=== PATIENT | female | born 1935 | race Caucasian/White ===

== ENCOUNTER → 2017-01-27 | Outpatient (CLI) | payer MEDICARE | END | disposition home or self-care (01) | LOC: WOUND 13:52 | PROVIDERS: ATTEND Podiatrist Foot & Ankle Surgery | DX: E11.621 Type 2 diabetes mellitus with foot ulcer (principal); L97.411 Non-pressure chronic ulcer of right heel and midfoot limited to breakdown of skin; I10 Essential (primary) hypertension; M19.90 Unspecified osteoarthritis, unspecified site | CPT/HCPCS: 97597; G0463; WOU0463 ==

== ENCOUNTER → 2017-02-10 | Outpatient (CLI) | payer MEDICARE | END | disposition home or self-care (01) | LOC: WOUND 14:30 | PROVIDERS: ATTEND Podiatrist Foot & Ankle Surgery | DX: E11.621 Type 2 diabetes mellitus with foot ulcer (principal); L97.411 Non-pressure chronic ulcer of right heel and midfoot limited to breakdown of skin; I10 Essential (primary) hypertension; M19.90 Unspecified osteoarthritis, unspecified site; Z96.649 Presence of unspecified artificial hip joint | CPT/HCPCS: G0463; WOU0463 ==

== ENCOUNTER 2019-03-01 13:54 | Inpatient (IN) | payer MEDICARE ==
[~2019-03-01] VITALS: Ht 157.5 cm; Wt 73.2 kg
[~2019-03-01 13:54] MED LIST: AMLO10TA8 PO; CARV-39 PO; GABA300C10 PO; HYDR25TA6 PO; INSU100I28 SQ; LIDO700A20 TD; LISI5TAB7 PO; METF500T17 PO; NYST15CR2 TP
[2019-03-01] MEDS ORDERED: SODIUM CHLORIDE 0.9% 1,000 ML IV ONE (13:59)
[2019-03-01] MEDS ORDERED: SODIUM CHLORIDE 0.9% 1,000ML IVBOLUS ONE ×2 (14:30→17:00)
[2019-03-01] MEDS ORDERED: ACETAMINOPHEN 500 MG TABLET PO ONE (14:30)
[2019-03-01] MEDS ORDERED: CEFTRIAXONE PMX 1GM/50ML 50 ML IV ONE (14:30)
[2019-03-01 14:35] LABS: MEAN CORPUSCULAR HEMOGLOBIN 29.6 pg (27.0-34.8); MEAN CORPUSCULAR HGB CONC 32.7 g/dL (32.4-35.8); MEAN CORPUSCULAR VOLUME 90.6 fL (80-100); MEAN PLATELET VOLUME 8.1 fL (7.4-10.4); PLATELET COUNT 203 x10^3/uL (130-400); RED BLOOD COUNT 4.42 x10^6/uL (3.82-5.3)
[2019-03-01 14:46] LABS: ALANINE AMINOTRANSFERASE 18 U/L (12-78); ALBUMIN 3.7 g/dL (3.4-5.0); ANION GAP 10 mmol/L (5-15); CALCIUM 9.3 mg/dL (8.5-10.1); CHLORIDE 101 mmol/L (98-107); CREATININE 0.86 mg/dL (0.55-1.02)
[2019-03-01 14:49] LABS: ALKALINE PHOSPHATASE 88 U/L (45-117); BILIRUBIN,TOTAL 0.8 mg/dL (0.2-1.0); TOTAL PROTEIN 7.6 g/dL (6.4-8.2)
[2019-03-01] MEDS ORDERED: CEFTRIAXONE PMX 1GM/50ML 50 ML ONE (14:49)
[2019-03-01] MEDS ORDERED: ACETAMINOPHEN 500 MG TABLET ONE (14:49)
[2019-03-01 15:06] LABS: MD YES
[2019-03-01 15:07] LABS: MICROSCOPIC INDICATED
[2019-03-01 15:08] LABS: BAND#(MANUAL) 1.95 x10^3/uL; BANDS%(MANUAL) 13 % (0-7); BASOS#(MANUAL) 0.15 x10^3/uL (0-0.1); BASOS% (MANUAL) 1 % (0-1); EOS% (MANUAL) 2 % (1-7); LYMPH#(MANUAL) 0.15 x10^3/uL (1-3.4); LYMPHS% (MANUAL) 1 % (22-44); MONOS#(MANUAL) 0.15 x10^3/uL (0.3-2.7); MONOS% (MANUAL) 1 % (2-9); SEGS% (MANUAL) 82 % (42-75)
[2019-03-01 15:11] LABS: <PLATELET ESTIMATE> ADEQUATE; <PLT MORPHOLOGY> NORMAL PLT MORPH; ANISOCYTOSIS 1+
[2019-03-01] MEDS ORDERED: AZITHROMYCIN 500 MG in SODIUM CHLORIDE 0.9% 250 ML IV ONE (15:30)
[2019-03-01 15:31] LABS: CULTURE INDICATED? YES
[2019-03-01] MEDS: SODIUM CHLORIDE 0.9% 1,000 ML IV SCH (16:25)
[2019-03-01] MEDS ORDERED: hydrALAzine 20 MG/ML, 1ML IVPush PRN (16:30)
[2019-03-01] MEDS ORDERED: HYDROcodone/APAP 5/325 TABLET PO PRN (16:30)
[2019-03-01] MEDS ORDERED: morphine SULFATE 10 MG/ML, 1ML IVPush PRN (16:30)
[2019-03-01] MEDS: ENOXAPARIN 40 MG/0.4 ML SQ SCH (16:30)
[2019-03-01] MEDS ORDERED: ONDANSETRON 2MG/ML, 2ML IVPush PRN (16:30)
[2019-03-01 17:10] VITALS: BP 131/76
[2019-03-01 18:56] LABS: HEMOGLOBIN A1C 7.4 % (4.2-6.3)
[2019-03-01 19:24] VITALS: BP 138/81
[2019-03-01] MEDS: DOXYCYCLINE 100MG CAP PO SCH (21:28)
[2019-03-01] MEDS: CARVEDILOL 25 MG TABLET PO SCH (21:29)
[2019-03-01] MEDS: INSULIN LISPRO 100 UNITS/ML, PEN SQ-INSULIN SCH (21:29)
[2019-03-01] MEDS: GABAPENTIN 100 MG CAPSULE PO SCH (21:29)
[2019-03-01] MEDS: INSULIN GLARGINE 100 UNITS/ML, PEN SQ-INSULIN SCH (21:29)
[2019-03-02] MEDS: KETOROLAC 30 MG/1 ML IVPush SCH ×3 (01:12→13:21)
[2019-03-02 01:51] VITALS: BP 116/74
[2019-03-02] MEDS: SODIUM CHLORIDE 0.9% 1,000 ML IV SCH ×3 (03:15→20:37)
[2019-03-02 05:19] LABS: MEAN CORPUSCULAR HEMOGLOBIN 30.1 pg (27.0-34.8); MEAN CORPUSCULAR HGB CONC 32.9 g/dL (32.4-35.8); MEAN CORPUSCULAR VOLUME 91.6 fL (80-100); MEAN PLATELET VOLUME 8.4 fL (7.4-10.4); PLATELET COUNT 148 x10^3/uL (130-400); RED BLOOD COUNT 3.51 x10^6/uL (3.82-5.3); RED CELL DISTRIBUTION WIDTH 15.2 % (9.6-15.2)
[2019-03-02 05:36] LABS: ALANINE AMINOTRANSFERASE 27 U/L (12-78); ALBUMIN 2.5 g/dL (3.4-5.0); ANION GAP 8 mmol/L (5-15); CALCIUM 7.8 mg/dL (8.5-10.1); CHLORIDE 107 mmol/L (98-107); CREATININE 0.75 mg/dL (0.55-1.02)
[2019-03-02 05:38] LABS: ALKALINE PHOSPHATASE 63 U/L (45-117); BILIRUBIN,TOTAL 0.5 mg/dL (0.2-1.0); TOTAL PROTEIN 5.6 g/dL (6.4-8.2)
[2019-03-02 05:57] LABS: BASOPHILS % (AUTO) 0 % (0-1); EOSINOPHILS # (AUTO) 0.01 x10^3/uL (0-0.4); EOSINOPHILS % (AUTO) 0 % (1-7); LYMPHOCYTES # (AUTO) 0.57 x10^3/uL (1-3.4); LYMPHOCYTES % (AUTO) 7 % (22-44); MD SCAN; MONOCYTES # (AUTO) 0.25 x10^3/uL (0.2-0.8); MONOCYTES % (AUTO) 3 % (2-9); NEUTROPHILS % (AUTO) 89 % (42-75)
[2019-03-02] MEDS: INSULIN LISPRO 100 UNITS/ML, PEN SQ-INSULIN SCH ×4 (07:00→20:39)
[2019-03-02 07:25] VITALS: BP 130/67
[2019-03-02] MEDS: LISINOPRIL 5 MG TABLET PO SCH (07:55)
[2019-03-02] MEDS: CARVEDILOL 25 MG TABLET PO SCH ×2 (07:56→20:38)
[2019-03-02] MEDS: DOXYCYCLINE 100MG CAP PO SCH ×2 (07:56→20:38)
[2019-03-02] MEDS: GABAPENTIN 100 MG CAPSULE PO SCH ×2 (07:56→20:38)
[2019-03-02] MEDS: AMLODIPINE 10 MG TAB PO SCH (07:56)
[2019-03-02] MEDS: INSULIN GLARGINE 100 UNITS/ML, PEN SQ-INSULIN SCH ×2 (09:36→20:40)
[2019-03-02 13:50] VITALS: BP 101/58
[2019-03-02] MEDS: CEFTRIAXONE PMX 2GM/50ML 50 ML IV SCH (15:06)
[2019-03-02] MEDS: ENOXAPARIN 40 MG/0.4 ML SQ SCH (16:56)
[2019-03-02 19:42] VITALS: BP 129/76
[2019-03-02] MEDS: KETOROLAC 30 MG/1 ML IVPush PRN (22:38)
[2019-03-03 00:42] VITALS: BP 134/79
[2019-03-03] MEDS: SODIUM CHLORIDE 0.9% 1,000 ML IV SCH (04:32)
[2019-03-03] MEDS: KETOROLAC 30 MG/1 ML IVPush PRN (05:30)
[2019-03-03 06:22] LABS: ANION GAP 7 mmol/L (5-15); CALCIUM 7.7 mg/dL (8.5-10.1); CHLORIDE 109 mmol/L (98-107)
[2019-03-03 06:23] LABS: CREATININE 0.56 mg/dL (0.55-1.02); MEAN CORPUSCULAR HEMOGLOBIN 32.8 pg (27.0-34.8); MEAN CORPUSCULAR HGB CONC 35.5 g/dL (32.4-35.8); MEAN CORPUSCULAR VOLUME 92.5 fL (80-100); RED BLOOD COUNT 3.16 x10^6/uL (3.82-5.3); RED CELL DISTRIBUTION WIDTH 15.2 % (9.6-15.2)
[2019-03-03 06:40] LABS: BASOPHILS # (AUTO) 0.01 x10^3/uL (0-0.1); BASOPHILS % (AUTO) 0 % (0-1); EOSINOPHILS # (AUTO) 0.13 x10^3/uL (0-0.4); EOSINOPHILS % (AUTO) 2 % (1-7); LYMPHOCYTES # (AUTO) 0.98 x10^3/uL (1-3.4); LYMPHOCYTES % (AUTO) 12 % (22-44); MD SCAN; MEAN PLATELET VOLUME 8.1 fL (7.4-10.4); MONOCYTES % (AUTO) 5 % (2-9); NEUTROPHILS # (AUTO) 6.86 x10^3/uL (1.8-6.8); NEUTROPHILS % (AUTO) 82 % (42-75); PLATELET COUNT 106 x10^3/uL (130-400)
[2019-03-03] MEDS: INSULIN LISPRO 100 UNITS/ML, PEN SQ-INSULIN SCH ×4 (07:00→21:00)
[2019-03-03 07:10] VITALS: BP 148/76
[2019-03-03] MEDS: DOXYCYCLINE 100MG CAP PO SCH ×2 (08:41→21:35)
[2019-03-03] MEDS: AMLODIPINE 10 MG TAB PO SCH (08:41)
[2019-03-03] MEDS: LISINOPRIL 5 MG TABLET PO SCH (08:42)
[2019-03-03] MEDS: GABAPENTIN 100 MG CAPSULE PO SCH ×2 (08:42→21:35)
[2019-03-03] MEDS: CARVEDILOL 25 MG TABLET PO SCH ×2 (08:42→21:35)
[2019-03-03] MEDS: INSULIN GLARGINE 100 UNITS/ML, PEN SQ-INSULIN SCH ×2 (08:57→21:00)
[2019-03-03 14:00] VITALS: BP 148/71
[2019-03-03] MEDS: CEFTRIAXONE PMX 2GM/50ML 50 ML IV SCH (16:19)
[2019-03-03] MEDS: ENOXAPARIN 40 MG/0.4 ML SQ SCH (16:19)
[2019-03-03] MEDS: ACETAMINOPHEN 325 MG TABLET PO PRN (17:41)
[2019-03-03 19:20] VITALS: BP 169/83
[2019-03-03 21:30] VITALS: BP 158/81
[2019-03-04 02:08] VITALS: BP 141/81
[2019-03-04 04:43] LABS: BASOPHILS # (AUTO) 0.02 x10^3/uL (0-0.1); BASOPHILS % (AUTO) 0 % (0-1); EOSINOPHILS # (AUTO) 0.08 x10^3/uL (0-0.4); EOSINOPHILS % (AUTO) 1 % (1-7); LYMPHOCYTES # (AUTO) 1.54 x10^3/uL (1-3.4); LYMPHOCYTES % (AUTO) 27 % (22-44); MD NO; MEAN CORPUSCULAR HGB CONC 32.7 g/dL (32.4-35.8); MEAN CORPUSCULAR VOLUME 91.7 fL (80-100); MEAN PLATELET VOLUME 8.8 fL (7.4-10.4); MONOCYTES # (AUTO) 0.49 x10^3/uL (0.2-0.8); MONOCYTES % (AUTO) 9 % (2-9); NEUTROPHILS # (AUTO) 3.67 x10^3/uL (1.8-6.8); NEUTROPHILS % (AUTO) 63 % (42-75); PLATELET COUNT 113 x10^3/uL (130-400); RED BLOOD COUNT 3.35 x10^6/uL (3.82-5.3)
[2019-03-04 04:47] LABS: ANION GAP 8 mmol/L (5-15); CALCIUM 8.5 mg/dL (8.5-10.1); CHLORIDE 106 mmol/L (98-107); CREATININE 0.51 mg/dL (0.55-1.02)
[2019-03-04] MEDS: INSULIN LISPRO 100 UNITS/ML, PEN SQ-INSULIN SCH ×4 (07:00→22:04)
[2019-03-04 07:51] VITALS: BP 180/84
[2019-03-04] MEDS: AMLODIPINE 10 MG TAB PO SCH (08:30)
[2019-03-04] MEDS: LISINOPRIL 5 MG TABLET PO SCH (08:30)
[2019-03-04] MEDS: DOXYCYCLINE 100MG CAP PO SCH ×2 (08:30→22:02)
[2019-03-04] MEDS: GABAPENTIN 100 MG CAPSULE PO SCH ×2 (08:30→22:03)
[2019-03-04] MEDS: ACETAMINOPHEN 325 MG TABLET PO PRN (08:31)
[2019-03-04] MEDS: CARVEDILOL 25 MG TABLET PO SCH ×2 (08:31→22:03)
[2019-03-04] MEDS: INSULIN GLARGINE 100 UNITS/ML, PEN SQ-INSULIN SCH ×2 (08:32→22:04)
[2019-03-04 09:24] VITALS: BP 165/85
[2019-03-04 14:26] VITALS: BP 150/77
[2019-03-04] MEDS: CYCLOBENZAPRINE 10 MG TABLET PO SCH ×2 (15:01→22:03)
[2019-03-04] MEDS: CEFTRIAXONE PMX 2GM/50ML 50 ML IV SCH (15:01)
[2019-03-04] MEDS: ENOXAPARIN 40 MG/0.4 ML SQ SCH (16:30)
[2019-03-04 19:16] VITALS: BP 142/73
[2019-03-04 22:00] VITALS: BP 158/74
[2019-03-05 03:05] VITALS: BP 151/61
[2019-03-05 05:33] LABS: BASOPHILS # (AUTO) 0.03 x10^3/uL (0-0.1); BASOPHILS % (AUTO) 1 % (0-1); EOSINOPHILS # (AUTO) 0.12 x10^3/uL (0-0.4); EOSINOPHILS % (AUTO) 2 % (1-7); LYMPHOCYTES # (AUTO) 1.26 x10^3/uL (1-3.4); LYMPHOCYTES % (AUTO) 24 % (22-44); MD NO; MEAN CORPUSCULAR HEMOGLOBIN 31.1 pg (27.0-34.8); MEAN CORPUSCULAR HGB CONC 33.5 g/dL (32.4-35.8); MEAN CORPUSCULAR VOLUME 92.8 fL (80-100); MEAN PLATELET VOLUME 8.8 fL (7.4-10.4); MONOCYTES # (AUTO) 0.63 x10^3/uL (0.2-0.8); MONOCYTES % (AUTO) 12 % (2-9); NEUTROPHILS # (AUTO) 3.28 x10^3/uL (1.8-6.8); NEUTROPHILS % (AUTO) 62 % (42-75); PLATELET COUNT 164 x10^3/uL (130-400); RED BLOOD COUNT 3.41 x10^6/uL (3.82-5.3); RED CELL DISTRIBUTION WIDTH 14.8 % (9.6-15.2)
[2019-03-05 05:42] LABS: ANION GAP 6 mmol/L (5-15); CALCIUM 8.8 mg/dL (8.5-10.1); CHLORIDE 111 mmol/L (98-107); CREATININE 0.41 mg/dL (0.55-1.02)
[2019-03-05 06:48] VITALS: BP 181/92
[2019-03-05] MEDS: INSULIN LISPRO 100 UNITS/ML, PEN SQ-INSULIN SCH ×4 (07:30→21:37)
[2019-03-05] MEDS: CARVEDILOL 25 MG TABLET PO SCH ×2 (08:36→21:36)
[2019-03-05] MEDS: INSULIN GLARGINE 100 UNITS/ML, PEN SQ-INSULIN SCH ×2 (08:36→21:38)
[2019-03-05] MEDS: GABAPENTIN 100 MG CAPSULE PO SCH ×2 (08:36→21:37)
[2019-03-05] MEDS: AMLODIPINE 10 MG TAB PO SCH (08:36)
[2019-03-05] MEDS: LISINOPRIL 5 MG TABLET PO SCH (08:37)
[2019-03-05] MEDS: CYCLOBENZAPRINE 10 MG TABLET PO SCH ×3 (08:37→21:36)
[2019-03-05] MEDS: DOXYCYCLINE 100MG CAP PO SCH ×2 (08:37→21:36)
[2019-03-05] MEDS ORDERED: POTASSIUM CHLORIDE 20 MEQ TAB.ER.PRT PO ONE (09:30)
[2019-03-05 12:17] VITALS: BP 119/77
[2019-03-05 13:23] VITALS: BP 163/73
[2019-03-05] MEDS: CEFTRIAXONE PMX 2GM/50ML 50 ML IV SCH (15:01)
[2019-03-05] MEDS: FUROSEMIDE 20 MG/2 ML IV SCH ×2 (17:00→17:07)
[2019-03-05] MEDS: ENOXAPARIN 40 MG/0.4 ML SQ SCH (17:07)
[2019-03-05 19:08] VITALS: BP 154/76
[2019-03-06 01:16] VITALS: BP 149/89
[2019-03-06 04:34] LABS: BASOPHILS # (AUTO) 0.02 x10^3/uL (0-0.1); BASOPHILS % (AUTO) 0 % (0-1); EOSINOPHILS # (AUTO) 0.15 x10^3/uL (0-0.4); EOSINOPHILS % (AUTO) 3 % (1-7); LYMPHOCYTES # (AUTO) 1.98 x10^3/uL (1-3.4); LYMPHOCYTES % (AUTO) 36 % (22-44); MD NO; MEAN CORPUSCULAR HEMOGLOBIN 29.7 pg (27.0-34.8); MEAN CORPUSCULAR HGB CONC 32.8 g/dL (32.4-35.8); MEAN CORPUSCULAR VOLUME 90.4 fL (80-100); MEAN PLATELET VOLUME 8.3 fL (7.4-10.4); MONOCYTES # (AUTO) 0.58 x10^3/uL (0.2-0.8); MONOCYTES % (AUTO) 11 % (2-9); NEUTROPHILS % (AUTO) 51 % (42-75); PLATELET COUNT 192 x10^3/uL (130-400); RED BLOOD COUNT 3.79 x10^6/uL (3.82-5.3); RED CELL DISTRIBUTION WIDTH 14.6 % (9.6-15.2)
[2019-03-06 04:36] LABS: ANION GAP 8 mmol/L (5-15); CALCIUM 9.3 mg/dL (8.5-10.1); CHLORIDE 105 mmol/L (98-107); CREATININE 0.54 mg/dL (0.55-1.02)
[2019-03-06] MEDS: INSULIN LISPRO 100 UNITS/ML, PEN SQ-INSULIN SCH ×4 (07:00→21:10)
[2019-03-06 07:16] VITALS: BP 195/80
[2019-03-06] MEDS: INSULIN GLARGINE 100 UNITS/ML, PEN SQ-INSULIN SCH ×2 (08:22→21:09)
[2019-03-06] MEDS: FUROSEMIDE 20 MG/2 ML IV SCH (08:22)
[2019-03-06] MEDS: LISINOPRIL 5 MG TABLET PO SCH (08:22)
[2019-03-06] MEDS: CYCLOBENZAPRINE 10 MG TABLET PO SCH ×3 (08:22→21:07)
[2019-03-06] MEDS: CARVEDILOL 25 MG TABLET PO SCH ×2 (08:22→21:08)
[2019-03-06] MEDS: DOXYCYCLINE 100MG CAP PO SCH ×2 (08:22→21:07)
[2019-03-06] MEDS: AMLODIPINE 10 MG TAB PO SCH (08:23)
[2019-03-06] MEDS: GABAPENTIN 100 MG CAPSULE PO SCH ×2 (08:23→21:07)
[2019-03-06 12:42] VITALS: BP 145/77
[2019-03-06] MEDS: CEFTRIAXONE PMX 2GM/50ML 50 ML IV SCH (15:02)
[2019-03-06] MEDS: ENOXAPARIN 40 MG/0.4 ML SQ SCH (15:38)
[2019-03-06] MEDS: FUROSEMIDE 20 MG TABLET PO SCH (16:37)
[2019-03-06 18:55] VITALS: BP 172/88
[2019-03-06] MEDS: ACETAMINOPHEN 325 MG TABLET PO PRN (22:33)
[2019-03-07 02:58] VITALS: BP 172/85
[2019-03-07 07:47] VITALS: BP 179/73
[2019-03-07] MEDS: INSULIN GLARGINE 100 UNITS/ML, PEN SQ-INSULIN SCH ×2 (09:05→20:49)
[2019-03-07] MEDS: INSULIN LISPRO 100 UNITS/ML, PEN SQ-INSULIN SCH ×4 (09:06→20:49)
[2019-03-07] MEDS: DOXYCYCLINE 100MG CAP PO SCH ×2 (09:07→20:41)
[2019-03-07] MEDS: FUROSEMIDE 20 MG TABLET PO SCH ×2 (09:07→16:37)
[2019-03-07] MEDS: CARVEDILOL 25 MG TABLET PO SCH ×2 (09:08→20:41)
[2019-03-07] MEDS: CYCLOBENZAPRINE 10 MG TABLET PO SCH ×3 (09:08→20:41)
[2019-03-07] MEDS: LISINOPRIL 5 MG TABLET PO SCH (09:08)
[2019-03-07] MEDS: GABAPENTIN 100 MG CAPSULE PO SCH ×2 (09:08→20:41)
[2019-03-07] MEDS: AMLODIPINE 10 MG TAB PO SCH (09:13)
[2019-03-07] MEDS: CEFDINIR 300 MG CAPSULE PO SCH (14:17)
[2019-03-07 14:50] VITALS: BP 179/72
[2019-03-07] MEDS: ENOXAPARIN 40 MG/0.4 ML SQ SCH (16:37)
[2019-03-07 19:59] VITALS: BP 179/76
[2019-03-07] MEDS: LISINOPRIL 10 MG TABLET PO SCH (20:41)
[2019-03-08 03:33] VITALS: BP 129/75
[2019-03-08] MEDS: CEFDINIR 300 MG CAPSULE PO SCH (05:31)
[2019-03-08] MEDS: INSULIN LISPRO 100 UNITS/ML, PEN SQ-INSULIN SCH ×3 (07:00→17:06)
[2019-03-08 07:15] VITALS: BP 175/80
[2019-03-08] MEDS: DOXYCYCLINE 100MG CAP PO SCH (07:52)
[2019-03-08] MEDS: FUROSEMIDE 20 MG TABLET PO SCH ×2 (07:53→16:28)
[2019-03-08] MEDS: CARVEDILOL 25 MG TABLET PO SCH (07:53)
[2019-03-08] MEDS: AMLODIPINE 10 MG TAB PO SCH (07:55)
[2019-03-08] MEDS: LISINOPRIL 10 MG TABLET PO SCH (07:55)
[2019-03-08] MEDS: CYCLOBENZAPRINE 10 MG TABLET PO SCH ×2 (08:02→16:43)
[2019-03-08] MEDS: INSULIN GLARGINE 100 UNITS/ML, PEN SQ-INSULIN SCH (08:04)
[2019-03-08] MEDS: GABAPENTIN 100 MG CAPSULE PO SCH (08:05)
[2019-03-08] MEDS ORDERED: AMLODIPINE 10 MG TAB PO SCH (09:00)
[2019-03-08] MEDS ORDERED: HYDR20VI3 IVPush (10:46)
[2019-03-08] MEDS ORDERED: INSU100I11 SQ-INSULIN (10:46)
[2019-03-08] MEDS ORDERED: LISI-167 PO (10:46)
[2019-03-08] MEDS ORDERED: INSU100I13 SQ-INSULIN (10:46)
[2019-03-08] MEDS ORDERED: FURO20TA3 PO (10:46)
[2019-03-08] MEDS ORDERED: AMLO10TA8 PO (10:46)
[2019-03-08] MEDS ORDERED: CEFD300C37 PO (10:46)
[2019-03-08] MEDS ORDERED: ENOX40SY4 SQ (10:46)
[2019-03-08 12:44] VITALS: BP 146/68
[2019-03-08] MEDS: ENOXAPARIN 40 MG/0.4 ML SQ SCH (16:40)
== END 2019-03-08 17:09 | DRG 871 ==
LOC: ED 16:10 → EDIP 16:15 → 3NE 16:35
PROVIDERS: ADMIT Internal Medicine; ATTEND Internal Medicine
PROC: 0T9B70Z Drainage of Bladder with Drainage Device, Via Natural or Artificial Opening (ICD-10-PCS; principal; 2019-03-01)
DX: A41.9 Sepsis, unspecified organism (principal); J18.1 Lobar pneumonia, unspecified organism; J96.01 Acute respiratory failure with hypoxia; E87.2 Acidosis; N39.0 Urinary tract infection, site not specified; R65.20 Severe sepsis without septic shock; Z96.89 Presence of other specified functional implants; M21.371 Foot drop, right foot; M21.372 Foot drop, left foot; E11.649 Type 2 diabetes mellitus with hypoglycemia without coma; E11.41 Type 2 diabetes mellitus with diabetic mononeuropathy; K44.9 Diaphragmatic hernia without obstruction or gangrene; G89.29 Other chronic pain; E78.5 Hyperlipidemia, unspecified; I50.9 Heart failure, unspecified; I11.0 Hypertensive heart disease with heart failure; Z79.891 Long term (current) use of opiate analgesic; Z79.4 Long term (current) use of insulin; Z82.3 Family history of stroke; Z88.0 Allergy status to penicillin
CPT/HCPCS: 36415; 71045; 71250; 80048; 80053; 81001; 82962; 83036; 83605; 83880; 84145; 85025; 85651; 86140; 86738; 87040; 87086; 87449; 93005; 99285; G0378; J0456; J0696; J1650; J1885; J0360; J1815; J1940; J7030; J7050

== ENCOUNTER 2019-08-31 11:00 | Outpatient (CLI) | payer MEDICARE ==
[~2019-08-31 11:00] MED LIST changes: +ATOR-2 PO; +CARV6.25 PO; +CEFD300C37 PO; +ENOX40SY4 SQ; +FURO20TA3 PO; +FURO40TA6 PO; +GABA-826 PO; +HYDR20VI3 IVPush; +INSU100I11 SQ-INSULIN; +INSU100I13 SQ-INSULIN; +LISI-167 PO; +LISI10TA2 PO; +POTA10TA6 PO
[2019-09-24] MEDS ORDERED: APIX5TAB PO (08:49)
[2019-09-24] MEDS ORDERED: LIDO700A20 TD (08:49)
[2019-09-24] MEDS ORDERED: Sulfameth./Trimethoprim Ds PO (08:49)
== END 2019-08-31 23:59 | disposition home or self-care (01) ==
LOC: CFH 11:00
PROVIDERS: ATTEND Family Medicine
DX: G31.89 Other specified degenerative diseases of nervous system (principal); I61.9 Nontraumatic intracerebral hemorrhage, unspecified
CPT/HCPCS: 70450

== ENCOUNTER 2019-10-29 12:13 | Inpatient (IN) | payer MEDICARE ==
[~2019-10-29] VITALS: Ht 157.5 cm; Wt 67.5 kg
[~2019-10-29 12:13] MED LIST changes: +APIX5TAB PO; +Sulfameth./Trimethoprim Ds PO
--- NOTE | 2019-10-29 12:30 | NUR ---
PT IN BED, AT BEDSIDE. BREATHING EVEN AND UNLABORED, NO SIGNS OF DISTRESS. ER MD AT BEDSIDE.
[2019-10-29 12:52] LABS: MEAN CORPUSCULAR HEMOGLOBIN 30.3 pg (27.0-34.8); MEAN CORPUSCULAR VOLUME 91.8 fL (80-100); MEAN PLATELET VOLUME 7.7 fL (7.4-10.4); PLATELET COUNT 313 x10^3/uL (130-400); RED CELL DISTRIBUTION WIDTH 14.9 % (9.6-15.2)
[2019-10-29 13:04] LABS: ALBUMIN 3.3 g/dL (3.4-5.0); ANION GAP 8 mmol/L (5-15); CALCIUM 8.8 mg/dL (8.5-10.1); CHLORIDE 95 mmol/L (98-107); CREATININE 0.73 mg/dL (0.55-1.02)
[2019-10-29 13:06] LABS: MD YES
[2019-10-29 13:08] LABS: <PLATELET ESTIMATE> ADEQUATE; <PLT MORPHOLOGY> NORMAL PLT MORPH; <RBC MORPHOLOGY> NORMAL; BAND#(MANUAL) 0.93 x10^3/uL; BANDS%(MANUAL) 6 % (0-7); BASOS#(MANUAL) 0.16 x10^3/uL (0-0.1); BASOS% (MANUAL) 1 % (0-1); EOS#(MANUAL) 0.16 x10^3/uL (0.0-0.4); EOS% (MANUAL) 1 % (1-7); LYMPH#(MANUAL) 0.31 x10^3/uL (1-3.4); LYMPHS% (MANUAL) 2 % (22-44); MONOS#(MANUAL) 0.31 x10^3/uL (0.3-2.7); MONOS% (MANUAL) 2 % (2-9); SEG#(MANUAL) 13.64 x10^3/uL (1.8-6.8); SEGS% (MANUAL) 88 % (42-75)
--- NOTE | 2019-10-29 13:36 | NUR ---
pt laying in bed, eyes closed, respirations even and unlabored, snoring heard. skin tear on lef [place], 1in, cleaned with wound gut cleaner, no active bleeding, optifoam placed. pt moaned during placement, no other signs of distress, returned immediately to snoring.
--- NOTE | 2019-10-29 13:50 | NUR ---
STRAIGHT CATH PERFORMED PER PROTOCOL, PT TOLERATED WELL.
[2019-10-29] MEDS ORDERED: SODIUM CHLORIDE 0.9% 1,000 ML IV ONE (14:00)
[2019-10-29 14:35] LABS: CULTURE INDICATED? YES; MICROSCOPIC INDICATED
[2019-10-29] MEDS ORDERED: ERTAPENEM 1 GM in SODIUM CHLORIDE 0.9% 50 ML IV ONE (15:00)
[2019-10-29] MEDS ORDERED: ondansetron (15:03)
[2019-10-29] MEDS ORDERED: NITROFURANTOIN (15:03)
[2019-10-29] MEDS ORDERED: NITR100C PO (15:12)
--- NOTE | 2019-10-29 15:52 | NUR ---
hospitalist at bedside, pt medicated to mar, pt remains the same, eyes closed, repirations unlabored and even and snoring heard. at bedside.
[2019-10-29] MEDS ORDERED: ERTAPENEM 1 GM in SODIUM CHLORIDE 0.9% 50 ML IV SCH (16:00)
--- NOTE | 2019-10-29 16:29 | NUR ---
pt resting in bed, eyes closed, breathing even and unlabored, at bedside, lights off to promote rest.
--- NOTE | 2019-10-29 16:33 | NUR ---
pt to ct.
--- NOTE | 2019-10-29 16:40 | NUR ---
PT BACK FROM CT.
[2019-10-29] MEDS ORDERED: MAGNESIUM SULFATE PMX 2GM/50ML 50 ML IV ONE (17:00)
--- NOTE | 2019-10-29 17:39 | NUR ---
pt condition remains unchanged, will continue to monitor.
[2019-10-29] MEDS ORDERED: MAGNESIUM SULFATE PMX 2GM/50ML 50 ML ONE (17:40)
--- NOTE | 2019-10-29 18:23 | NUR ---
report given to luis angel shaikh.
[2019-10-29 18:35] LABS: OSMOLALITY,URINE 302 mOsm/kg (500-850)
--- NOTE | 2019-10-29 18:58 | NUR ---
REPORT GIVEN TO EDUIN BRANDT.
--- NOTE | 2019-10-29 19:23 | NUR ---
Report received from EDUIN Montalvo. This RN to assume care. Patient resting in hosp bed with no complaints. at bedside.
[2019-10-29 20:21] VITALS: BP 125/74
[2019-10-29] MEDS: SODIUM CHLORIDE 0.9% 1,000 ML IV SCH (20:51)
[2019-10-29] MEDS: APIXABAN 5 MG TABLET PO SCH (20:51)
[2019-10-29] MEDS: GABAPENTIN 100 MG CAPSULE PO SCH (20:52)
[2019-10-29] MEDS: ATORVASTATIN 80 MG TABLET PO SCH (20:52)
[2019-10-29] MEDS: INSULIN LISPRO 100 UNITS/ML, PEN SQ-INSULIN SCH (20:55)
[2019-10-29] MEDS: MEROPENEM 500 MG in SODIUM CHLORIDE 0.9% 100 ML IV SCH (23:18)
[2019-10-30 00:34] VITALS: BP 142/64
[2019-10-30] MEDS: ACETAMINOPHEN 325 MG TABLET PO PRN ×2 (02:15→19:13)
[2019-10-30] MEDS: HYDROmorphone 2 MG/ML, 1ML IV PRN ×4 (03:05→20:20)
[2019-10-30] MEDS ORDERED: HYDROmorphone 1 MG/ML, 1ML INJ IV ONE (06:00)
[2019-10-30] MEDS ORDERED: HYDROmorphone 2 MG/ML, 1ML ONE (06:06)
[2019-10-30] MEDS: MEROPENEM 500 MG in SODIUM CHLORIDE 0.9% 100 ML IV SCH ×3 (06:31→23:30)
[2019-10-30] MEDS: SODIUM CHLORIDE 0.9% 1,000 ML IV SCH (06:32)
[2019-10-30] MEDS: INSULIN LISPRO 100 UNITS/ML, PEN SQ-INSULIN SCH ×4 (07:00→20:46)
[2019-10-30 07:03] VITALS: BP 155/65
[2019-10-30 08:38] LABS: MEAN CORPUSCULAR HEMOGLOBIN 30.5 pg (27.0-34.8); MEAN CORPUSCULAR HGB CONC 33.3 g/dL (32.4-35.8); MEAN CORPUSCULAR VOLUME 91.7 fL (80-100); MEAN PLATELET VOLUME 7.9 fL (7.4-10.4); PLATELET COUNT 259 x10^3/uL (130-400); RED BLOOD COUNT 3.05 x10^6/uL (3.82-5.3); RED CELL DISTRIBUTION WIDTH 15.2 % (9.6-15.2)
[2019-10-30 08:42] LABS: ALBUMIN 2.5 g/dL (3.4-5.0); ANION GAP 9 mmol/L (5-15); CALCIUM 8.2 mg/dL (8.5-10.1); CHLORIDE 101 mmol/L (98-107)
[2019-10-30 08:47] LABS: ALANINE AMINOTRANSFERASE 45 U/L (12-78); ALKALINE PHOSPHATASE 193 U/L (45-117); BILIRUBIN,TOTAL 0.6 mg/dL (0.2-1.0); CREATININE 0.58 mg/dL (0.55-1.02); TOTAL PROTEIN 5.6 g/dL (6.4-8.2)
[2019-10-30] MEDS ORDERED: ERTAPENEM 1 GM in SODIUM CHLORIDE 0.9% 50 ML IV SCH (09:00)
[2019-10-30] MEDS ORDERED: LISINOPRIL 10 MG TABLET PO SCH ×2 (09:00→21:00)
[2019-10-30 09:05] LABS: BASOPHILS # (AUTO) 0.02 x10^3/uL (0-0.1); BASOPHILS % (AUTO) 0 % (0-1); EOSINOPHILS # (AUTO) 0.35 x10^3/uL (0-0.4); EOSINOPHILS % (AUTO) 5 % (1-7); LYMPHOCYTES # (AUTO) 0.81 x10^3/uL (1-3.4); LYMPHOCYTES % (AUTO) 12 % (22-44); MD SCAN; MONOCYTES # (AUTO) 0.45 x10^3/uL (0.2-0.8); MONOCYTES % (AUTO) 7 % (2-9); NEUTROPHILS # (AUTO) 5.26 x10^3/uL (1.8-6.8); NEUTROPHILS % (AUTO) 76 % (42-75)
[2019-10-30] MEDS: SENNA/DOCUSATE TABLET PO SCH (10:19)
[2019-10-30] MEDS: APIXABAN 5 MG TABLET PO SCH ×2 (10:19→20:22)
[2019-10-30] MEDS: GABAPENTIN 100 MG CAPSULE PO SCH ×2 (10:20→20:21)
--- NOTE | 2019-10-30 11:12 | NUR ---
[facility] D/C disposition: [facility] Addendum: 10/30/19 at 1112 by CEDRICK ROSE OT Amended: Links added.
[2019-10-30 13:47] VITALS: BP 157/83
[2019-10-30 19:46] VITALS: BP 138/95
[2019-10-30] MEDS: ATORVASTATIN 80 MG TABLET PO SCH (20:20)
[2019-10-30] MEDS ORDERED: MELA5CAP PO (20:29)
[2019-10-30] MEDS: ONDANSETRON 2MG/ML, 2ML IVPush PRN (21:28)
[2019-10-31] MEDS: HYDROmorphone 2 MG/ML, 1ML IV PRN ×7 (00:18→21:16)
[2019-10-31 00:23] VITALS: BP 161/72
[2019-10-31 06:44] VITALS: BP 157/79
[2019-10-31] MEDS: INSULIN LISPRO 100 UNITS/ML, PEN SQ-INSULIN SCH ×4 (07:00→21:00)
[2019-10-31] MEDS: MEROPENEM 500 MG in SODIUM CHLORIDE 0.9% 100 ML IV SCH ×2 (07:32→16:26)
[2019-10-31 08:32] LABS: ANION GAP 7 mmol/L (5-15); CALCIUM 8.1 mg/dL (8.5-10.1); CHLORIDE 104 mmol/L (98-107); CREATININE 0.47 mg/dL (0.55-1.02)
[2019-10-31] MEDS: APIXABAN 5 MG TABLET PO SCH ×2 (09:12→21:16)
[2019-10-31] MEDS: GABAPENTIN 100 MG CAPSULE PO SCH ×2 (09:13→21:16)
[2019-10-31] MEDS: SENNA/DOCUSATE TABLET PO SCH (09:14)
[2019-10-31] MEDS: LISINOPRIL 5 MG TABLET PO SCH ×2 (09:14→21:16)
[2019-10-31] MEDS: ACETAMINOPHEN 325 MG TABLET PO PRN (11:54)
[2019-10-31 17:07] VITALS: BP 178/86
[2019-10-31 17:28] VITALS: BP 165/80
[2019-10-31 20:31] VITALS: BP 183/78
[2019-10-31] MEDS: ATORVASTATIN 80 MG TABLET PO SCH (21:17)
[2019-10-31] MEDS: MELATONIN 5 MG TABLET PO PRN (21:28)
[2019-10-31] MEDS: POLYETHYLENE GLYCOL 17 GM PACKET PO PRN (21:46)
[2019-11-01 02:07] VITALS: BP 154/75
[2019-11-01] MEDS: HYDROmorphone 2 MG/ML, 1ML IV PRN ×5 (02:24→20:38)
[2019-11-01] MEDS: INSULIN LISPRO 100 UNITS/ML, PEN SQ-INSULIN SCH ×4 (07:00→21:00)
[2019-11-01] MEDS: APIXABAN 5 MG TABLET PO SCH ×2 (08:04→20:36)
[2019-11-01] MEDS: AMLODIPINE 5 MG TABLET PO SCH (08:04)
[2019-11-01] MEDS: LISINOPRIL 5 MG TABLET PO SCH ×2 (08:04→20:35)
[2019-11-01] MEDS: metFORMIN 500 MG TABLET PO SCH ×2 (08:04→17:27)
[2019-11-01] MEDS: GABAPENTIN 100 MG CAPSULE PO SCH ×2 (08:04→20:36)
[2019-11-01] MEDS: SENNA/DOCUSATE TABLET PO SCH (08:04)
[2019-11-01] MEDS: MEROPENEM 500 MG in SODIUM CHLORIDE 0.9% 100 ML IV SCH ×3 (08:06→16:16)
[2019-11-01 08:07] VITALS: BP 182/87
[2019-11-01] MEDS: ACETAMINOPHEN 325 MG TABLET PO PRN ×3 (08:58→23:22)
[2019-11-01] MEDS: ONDANSETRON 2MG/ML, 2ML IVPush PRN (11:48)
[2019-11-01 14:28] VITALS: BP 166/87
[2019-11-01 19:03] VITALS: BP 175/90
[2019-11-01] MEDS: ATORVASTATIN 80 MG TABLET PO SCH (20:35)
[2019-11-01] MEDS: POLYETHYLENE GLYCOL 17 GM PACKET PO PRN (20:51)
[2019-11-01] MEDS: MELATONIN 5 MG TABLET PO PRN (22:13)
[2019-11-02] MEDS: MEROPENEM 500 MG in SODIUM CHLORIDE 0.9% 100 ML IV SCH ×3 (00:10→20:46)
[2019-11-02 00:53] VITALS: BP 149/79
[2019-11-02] MEDS: HYDROmorphone 2 MG/ML, 1ML IV PRN ×5 (01:02→20:46)
[2019-11-02] MEDS: ACETAMINOPHEN 325 MG TABLET PO PRN ×2 (03:23→11:44)
[2019-11-02 07:07] LABS: BASOPHILS # (AUTO) 0.04 x10^3/uL (0-0.1); BASOPHILS % (AUTO) 1 % (0-1); EOSINOPHILS # (AUTO) 0.74 x10^3/uL (0-0.4); EOSINOPHILS % (AUTO) 10 % (1-7); LYMPHOCYTES # (AUTO) 1.33 x10^3/uL (1-3.4); LYMPHOCYTES % (AUTO) 18 % (22-44); MD NO; MEAN CORPUSCULAR VOLUME 90.9 fL (80-100); MEAN PLATELET VOLUME 8.1 fL (7.4-10.4); MONOCYTES # (AUTO) 0.66 x10^3/uL (0.2-0.8); MONOCYTES % (AUTO) 9 % (2-9); NEUTROPHILS # (AUTO) 4.64 x10^3/uL (1.8-6.8); NEUTROPHILS % (AUTO) 63 % (42-75); PLATELET COUNT 263 x10^3/uL (130-400); RED BLOOD COUNT 3.26 x10^6/uL (3.82-5.3); RED CELL DISTRIBUTION WIDTH 14.7 % (9.6-15.2)
[2019-11-02 07:16] LABS: ANION GAP 6 mmol/L (5-15); CALCIUM 8.5 mg/dL (8.5-10.1); CHLORIDE 102 mmol/L (98-107); CREATININE 0.46 mg/dL (0.55-1.02)
[2019-11-02] MEDS: INSULIN LISPRO 100 UNITS/ML, PEN SQ-INSULIN SCH ×4 (07:20→21:00)
[2019-11-02 07:24] VITALS: BP 180/75
[2019-11-02] MEDS: metFORMIN 500 MG TABLET PO SCH ×2 (07:43→15:55)
[2019-11-02] MEDS: GABAPENTIN 100 MG CAPSULE PO SCH ×2 (07:43→20:46)
[2019-11-02] MEDS: APIXABAN 5 MG TABLET PO SCH ×2 (07:43→20:47)
[2019-11-02] MEDS: AMLODIPINE 5 MG TABLET PO SCH ×2 (07:43→20:47)
[2019-11-02] MEDS: SENNA/DOCUSATE TABLET PO SCH (07:43)
[2019-11-02] MEDS: LISINOPRIL 5 MG TABLET PO SCH ×2 (07:43→20:47)
[2019-11-02 13:39] VITALS: BP 175/83
[2019-11-02 18:39] VITALS: BP 198/65
[2019-11-02] MEDS: POLYETHYLENE GLYCOL 17 GM PACKET PO PRN (19:17)
[2019-11-02] MEDS ORDERED: MEROPENEM 500 MG in SODIUM CHLORIDE 0.9% 100 ML IV SCH (20:00)
[2019-11-02] MEDS: MELATONIN 5 MG TABLET PO PRN (20:46)
[2019-11-02] MEDS: ATORVASTATIN 80 MG TABLET PO SCH (20:46)
[2019-11-03 00:02] VITALS: BP 163/72
[2019-11-03] MEDS: HYDROmorphone 2 MG/ML, 1ML IV PRN ×5 (01:49→23:01)
[2019-11-03] MEDS: ACETAMINOPHEN 325 MG TABLET PO PRN ×3 (05:04→21:43)
[2019-11-03 06:47] LABS: BASOPHILS # (AUTO) 0.06 x10^3/uL (0-0.1); BASOPHILS % (AUTO) 1 % (0-1); EOSINOPHILS # (AUTO) 0.78 x10^3/uL (0-0.4); EOSINOPHILS % (AUTO) 12 % (1-7); LYMPHOCYTES # (AUTO) 1.37 x10^3/uL (1-3.4); LYMPHOCYTES % (AUTO) 20 % (22-44); MD NO; MEAN CORPUSCULAR HEMOGLOBIN 29.8 pg (27.0-34.8); MEAN CORPUSCULAR HGB CONC 33.1 g/dL (32.4-35.8); MONOCYTES # (AUTO) 0.67 x10^3/uL (0.2-0.8); MONOCYTES % (AUTO) 10 % (2-9); NEUTROPHILS % (AUTO) 58 % (42-75); PLATELET COUNT 292 x10^3/uL (130-400); RED BLOOD COUNT 3.33 x10^6/uL (3.82-5.3); RED CELL DISTRIBUTION WIDTH 15.4 % (9.6-15.2)
[2019-11-03 06:56] LABS: ANION GAP 6 mmol/L (5-15); CALCIUM 8.4 mg/dL (8.5-10.1); CHLORIDE 103 mmol/L (98-107); CREATININE 0.39 mg/dL (0.55-1.02)
[2019-11-03 06:59] VITALS: BP 180/83
[2019-11-03] MEDS: INSULIN LISPRO 100 UNITS/ML, PEN SQ-INSULIN SCH ×4 (08:01→20:48)
[2019-11-03] MEDS: MEROPENEM 500 MG in SODIUM CHLORIDE 0.9% 100 ML IV SCH ×2 (08:49→20:42)
[2019-11-03] MEDS: GABAPENTIN 100 MG CAPSULE PO SCH ×2 (08:58→21:42)
[2019-11-03] MEDS: AMLODIPINE 5 MG TABLET PO SCH ×2 (08:58→21:43)
[2019-11-03] MEDS: APIXABAN 5 MG TABLET PO SCH ×2 (08:58→21:43)
[2019-11-03] MEDS: metFORMIN 500 MG TABLET PO SCH ×2 (08:58→16:21)
[2019-11-03] MEDS: SENNA/DOCUSATE TABLET PO SCH (08:59)
[2019-11-03] MEDS: LISINOPRIL 20 MG TABLET PO SCH ×2 (08:59→21:43)
[2019-11-03 13:53] VITALS: BP 184/78
[2019-11-03 19:43] VITALS: BP 198/81
[2019-11-03] MEDS: ONDANSETRON 2MG/ML, 2ML IVPush PRN (20:42)
[2019-11-03] MEDS: ATORVASTATIN 80 MG TABLET PO SCH (21:43)
[2019-11-03] MEDS: MELATONIN 5 MG TABLET PO PRN (21:56)
[2019-11-04 03:08] VITALS: BP 163/70
[2019-11-04] MEDS: ACETAMINOPHEN 325 MG TABLET PO PRN ×4 (03:19→19:45)
[2019-11-04] MEDS: hydrALAzine 20 MG/ML, 1ML IV PRN (03:20)
[2019-11-04] MEDS: HYDROmorphone 2 MG/ML, 1ML IV PRN ×5 (04:06→22:17)
[2019-11-04] MEDS: INSULIN LISPRO 100 UNITS/ML, PEN SQ-INSULIN SCH ×4 (07:00→20:59)
[2019-11-04 08:32] VITALS: BP 176/78
[2019-11-04] MEDS: GABAPENTIN 100 MG CAPSULE PO SCH ×2 (09:16→19:45)
[2019-11-04] MEDS: APIXABAN 5 MG TABLET PO SCH ×2 (09:16→19:45)
[2019-11-04] MEDS: AMLODIPINE 5 MG TABLET PO SCH ×2 (09:16→19:45)
[2019-11-04] MEDS: metFORMIN 500 MG TABLET PO SCH ×2 (09:16→17:24)
[2019-11-04] MEDS: SENNA/DOCUSATE TABLET PO SCH (09:17)
[2019-11-04] MEDS: LISINOPRIL 20 MG TABLET PO SCH ×2 (09:17→19:45)
[2019-11-04] MEDS: MEROPENEM 500 MG in SODIUM CHLORIDE 0.9% 100 ML IV SCH ×2 (09:18→21:42)
[2019-11-04 14:12] VITALS: BP 164/78
[2019-11-04] MEDS: ATORVASTATIN 80 MG TABLET PO SCH (19:45)
[2019-11-04 19:49] VITALS: BP 173/81
[2019-11-05] MEDS: ACETAMINOPHEN 325 MG TABLET PO PRN ×6 (00:01→23:05)
[2019-11-05 00:26] VITALS: BP 154/82
[2019-11-05] MEDS: HYDROmorphone 2 MG/ML, 1ML IV PRN ×5 (02:35→20:23)
[2019-11-05 06:40] VITALS: BP 170/70
[2019-11-05] MEDS: INSULIN LISPRO 100 UNITS/ML, PEN SQ-INSULIN SCH ×4 (07:00→20:02)
[2019-11-05] MEDS: APIXABAN 5 MG TABLET PO SCH ×2 (07:39→20:21)
[2019-11-05] MEDS: GABAPENTIN 100 MG CAPSULE PO SCH ×2 (07:39→20:21)
[2019-11-05] MEDS: AMLODIPINE 5 MG TABLET PO SCH ×2 (07:39→20:21)
[2019-11-05] MEDS: metFORMIN 500 MG TABLET PO SCH ×2 (07:39→15:58)
[2019-11-05] MEDS: LISINOPRIL 20 MG TABLET PO SCH ×2 (07:39→20:21)
[2019-11-05] MEDS: SENNA/DOCUSATE TABLET PO SCH (07:39)
[2019-11-05] MEDS: MEROPENEM 500 MG in SODIUM CHLORIDE 0.9% 100 ML IV SCH ×2 (07:40→20:19)
[2019-11-05 09:23] VITALS: BP 175/74
[2019-11-05] MEDS: hydrALAzine 20 MG/ML, 1ML IV PRN (09:43)
[2019-11-05 10:33] VITALS: BP 157/65
[2019-11-05 13:30] VITALS: BP 153/71
[2019-11-05 19:35] VITALS: BP 154/74
[2019-11-05] MEDS: ATORVASTATIN 80 MG TABLET PO SCH (20:21)
[2019-11-06] MEDS: MELATONIN 5 MG TABLET PO PRN ×2 (00:21→23:20)
[2019-11-06 01:56] VITALS: BP 158/69
[2019-11-06] MEDS: HYDROmorphone 2 MG/ML, 1ML IV PRN ×4 (02:43→19:37)
[2019-11-06 05:23] LABS: BASOPHILS # (AUTO) 0.04 x10^3/uL (0-0.1); BASOPHILS % (AUTO) 1 % (0-1); EOSINOPHILS # (AUTO) 0.74 x10^3/uL (0-0.4); EOSINOPHILS % (AUTO) 11 % (1-7); LYMPHOCYTES # (AUTO) 2.13 x10^3/uL (1-3.4); LYMPHOCYTES % (AUTO) 33 % (22-44); MD NO; MEAN CORPUSCULAR HGB CONC 33.6 g/dL (32.4-35.8); MEAN PLATELET VOLUME 8.1 fL (7.4-10.4); MONOCYTES # (AUTO) 0.63 x10^3/uL (0.2-0.8); MONOCYTES % (AUTO) 10 % (2-9); NEUTROPHILS # (AUTO) 3.01 x10^3/uL (1.8-6.8); NEUTROPHILS % (AUTO) 46 % (42-75); PLATELET COUNT 333 x10^3/uL (130-400); RED BLOOD COUNT 3.36 x10^6/uL (3.82-5.3)
[2019-11-06 05:36] LABS: CHLORIDE 100 mmol/L (98-107)
[2019-11-06 05:41] LABS: ANION GAP 8 mmol/L (5-15); CALCIUM 8.4 mg/dL (8.5-10.1); CREATININE 0.46 mg/dL (0.55-1.02)
[2019-11-06] MEDS: ACETAMINOPHEN 325 MG TABLET PO PRN ×4 (06:17→23:45)
[2019-11-06] MEDS: INSULIN LISPRO 100 UNITS/ML, PEN SQ-INSULIN SCH ×4 (07:00→20:46)
[2019-11-06 07:04] VITALS: BP 168/76
[2019-11-06] MEDS: metFORMIN 500 MG TABLET PO SCH ×2 (08:20→17:06)
[2019-11-06] MEDS: MEROPENEM 500 MG in SODIUM CHLORIDE 0.9% 100 ML IV SCH (08:20)
[2019-11-06] MEDS: LISINOPRIL 20 MG TABLET PO SCH ×2 (08:21→20:07)
[2019-11-06] MEDS: APIXABAN 5 MG TABLET PO SCH ×2 (08:21→20:07)
[2019-11-06] MEDS: SENNA/DOCUSATE TABLET PO SCH (08:21)
[2019-11-06] MEDS: AMLODIPINE 5 MG TABLET PO SCH ×2 (08:21→20:07)
[2019-11-06] MEDS: GABAPENTIN 100 MG CAPSULE PO SCH ×2 (08:21→20:07)
[2019-11-06] MEDS ORDERED: MAGNESIUM SULFATE PMX 2GM/50ML 50 ML IV ONE (09:00)
[2019-11-06] MEDS: MAGNESIUM CHLORIDE 64 MG TABLET.DR PO SCH ×3 (10:38→21:29)
[2019-11-06 12:44] VITALS: BP 171/79
[2019-11-06 19:08] VITALS: BP 185/75
[2019-11-06] MEDS: ONDANSETRON 2MG/ML, 2ML IVPush PRN (19:37)
[2019-11-06] MEDS: ATORVASTATIN 80 MG TABLET PO SCH (20:07)
[2019-11-06] MEDS: MEROPENEM 1 GM in SODIUM CHLORIDE 0.9% 100 ML IV SCH (21:29)
[2019-11-07] MEDS: HYDROmorphone 2 MG/ML, 1ML IV PRN ×3 (00:49→16:22)
[2019-11-07 02:00] VITALS: BP 150/77
[2019-11-07] MEDS: ONDANSETRON 2MG/ML, 2ML IVPush PRN ×3 (04:25→16:22)
[2019-11-07] MEDS: ACETAMINOPHEN 325 MG TABLET PO PRN ×3 (05:21→19:43)
[2019-11-07 07:20] VITALS: BP 171/79
[2019-11-07] MEDS: metFORMIN 500 MG TABLET PO SCH ×2 (08:00→16:27)
[2019-11-07] MEDS: INSULIN LISPRO 100 UNITS/ML, PEN SQ-INSULIN SCH ×4 (08:01→20:23)
[2019-11-07] MEDS: POLYETHYLENE GLYCOL 17 GM PACKET PO PRN (08:01)
[2019-11-07] MEDS: GABAPENTIN 100 MG CAPSULE PO SCH ×2 (08:47→20:17)
[2019-11-07] MEDS: APIXABAN 5 MG TABLET PO SCH (08:47)
[2019-11-07] MEDS: MEROPENEM 1 GM in SODIUM CHLORIDE 0.9% 100 ML IV SCH ×2 (08:47→21:03)
[2019-11-07] MEDS: LISINOPRIL 20 MG TABLET PO SCH ×2 (08:47→20:17)
[2019-11-07] MEDS: AMLODIPINE 5 MG TABLET PO SCH ×2 (08:47→20:17)
[2019-11-07] MEDS: MAGNESIUM CHLORIDE 64 MG TABLET.DR PO SCH ×2 (08:48→20:17)
[2019-11-07] MEDS: SENNA/DOCUSATE TABLET PO SCH (08:48)
[2019-11-07 10:05] LABS: ANION GAP 8 mmol/L (5-15); CALCIUM 8.4 mg/dL (8.5-10.1); CHLORIDE 91 mmol/L (98-107)
[2019-11-07 10:06] LABS: CREATININE 0.63 mg/dL (0.55-1.02)
[2019-11-07 12:55] VITALS: BP 131/60
[2019-11-07 17:11] LABS: BASOPHILS # (AUTO) 0.01 x10^3/uL (0-0.1); BASOPHILS % (AUTO) 0 % (0-1); EOSINOPHILS # (AUTO) 0.09 x10^3/uL (0-0.4); EOSINOPHILS % (AUTO) 1 % (1-7); LYMPHOCYTES # (AUTO) 1.18 x10^3/uL (1-3.4); LYMPHOCYTES % (AUTO) 14 % (22-44); MEAN CORPUSCULAR HEMOGLOBIN 30.1 pg (27.0-34.8); MEAN CORPUSCULAR HGB CONC 33.5 g/dL (32.4-35.8); MEAN CORPUSCULAR VOLUME 89.7 fL (80-100); MONOCYTES # (AUTO) 0.32 x10^3/uL (0.2-0.8); MONOCYTES % (AUTO) 4 % (2-9); NEUTROPHILS # (AUTO) 6.78 x10^3/uL (1.8-6.8); NEUTROPHILS % (AUTO) 81 % (42-75); PLATELET COUNT 368 x10^3/uL (130-400); RED CELL DISTRIBUTION WIDTH 15.2 % (9.6-15.2)
[2019-11-07 17:12] LABS: MD NO
[2019-11-07] MEDS ORDERED: POTASSIUM CHLORIDE 40 MEQ in SODIUM CHLORIDE 0.9% 500 ML IV ONE (18:00)
[2019-11-07] MEDS ORDERED: PANTOPRAZOLE 80 MG in SODIUM CHLORIDE 0.9% 50 ML IV ONE (18:00)
[2019-11-07] MEDS: PANTOPRAZOLE 80 MG in SODIUM CHLORIDE 0.9% 100 ML IV SCH (19:17)
[2019-11-07 19:25] VITALS: BP 137/55
[2019-11-07] MEDS: ATORVASTATIN 80 MG TABLET PO SCH (20:17)
[2019-11-07] MEDS: SODIUM CHLORIDE 0.9% 1,000 ML IV SCH (21:02)
[2019-11-08] VITALS (13 sets, daily range): BP systolic 109–144; BP diastolic 45–80
[2019-11-08] MEDS: PANTOPRAZOLE 80 MG in SODIUM CHLORIDE 0.9% 100 ML IV SCH ×2 (05:15→15:34)
[2019-11-08] MEDS: ACETAMINOPHEN 325 MG TABLET PO PRN (06:18)
[2019-11-08] MEDS: INSULIN LISPRO 100 UNITS/ML, PEN SQ-INSULIN SCH ×4 (08:15→20:28)
[2019-11-08] MEDS: MEROPENEM 1 GM in SODIUM CHLORIDE 0.9% 100 ML IV SCH ×2 (08:15→20:27)
[2019-11-08] MEDS: MAGNESIUM CHLORIDE 64 MG TABLET.DR PO SCH ×2 (08:20→20:28)
[2019-11-08] MEDS: GABAPENTIN 100 MG CAPSULE PO SCH ×2 (08:20→20:28)
[2019-11-08] MEDS: SENNA/DOCUSATE TABLET PO SCH (08:21)
[2019-11-08 08:28] LABS: ANION GAP 5 mmol/L (5-15); CALCIUM 7.9 mg/dL (8.5-10.1); CHLORIDE 100 mmol/L (98-107); CREATININE 0.69 mg/dL (0.55-1.02)
[2019-11-08] MEDS: AMLODIPINE 5 MG TABLET PO SCH ×2 (08:35→20:28)
[2019-11-08] MEDS: LISINOPRIL 20 MG TABLET PO SCH ×2 (08:35→20:28)
[2019-11-08] MEDS: SODIUM CHLORIDE 0.9% 1,000 ML IV SCH ×2 (10:20→15:45)
[2019-11-08] MEDS: POLYETHYLENE GLYCOL 17 GM PACKET PO SCH (14:00)
[2019-11-08] MEDS: HYDROmorphone 2 MG/ML, 1ML IV PRN ×2 (15:55→21:01)
[2019-11-08] MEDS: ATORVASTATIN 80 MG TABLET PO SCH (20:28)
[2019-11-08] MEDS: MELATONIN 5 MG TABLET PO PRN (22:56)
[2019-11-09] MEDS: PANTOPRAZOLE 80 MG in SODIUM CHLORIDE 0.9% 100 ML IV SCH ×2 (02:20→13:49)
[2019-11-09 02:24] VITALS: BP 130/60
[2019-11-09 05:31] LABS: ANION GAP 4 mmol/L (5-15); CALCIUM 7.5 mg/dL (8.5-10.1); CHLORIDE 108 mmol/L (98-107)
[2019-11-09 05:32] LABS: CREATININE 0.55 mg/dL (0.55-1.02)
[2019-11-09 05:38] LABS: BASOPHILS # (AUTO) 0.05 x10^3/uL (0-0.1); BASOPHILS % (AUTO) 1 % (0-1); EOSINOPHILS # (AUTO) 0.53 x10^3/uL (0-0.4); EOSINOPHILS % (AUTO) 6 % (1-7); LYMPHOCYTES # (AUTO) 1.77 x10^3/uL (1-3.4); LYMPHOCYTES % (AUTO) 22 % (22-44); MD NO; MEAN CORPUSCULAR HEMOGLOBIN 30.7 pg (27.0-34.8); MEAN CORPUSCULAR HGB CONC 33.9 g/dL (32.4-35.8); MEAN CORPUSCULAR VOLUME 90.6 fL (80-100); MEAN PLATELET VOLUME 8.6 fL (7.4-10.4); MONOCYTES # (AUTO) 0.66 x10^3/uL (0.2-0.8); MONOCYTES % (AUTO) 8 % (2-9); NEUTROPHILS # (AUTO) 5.19 x10^3/uL (1.8-6.8); NEUTROPHILS % (AUTO) 63 % (42-75); PLATELET COUNT 238 x10^3/uL (130-400); RED BLOOD COUNT 2.91 x10^6/uL (3.82-5.3); RED CELL DISTRIBUTION WIDTH 14.8 % (9.6-15.2)
[2019-11-09] MEDS: INSULIN LISPRO 100 UNITS/ML, PEN SQ-INSULIN SCH ×4 (07:00→21:37)
[2019-11-09 08:20] VITALS: BP 127/55
[2019-11-09] MEDS ORDERED: PROPOFOL 50 ML ONE (08:28)
[2019-11-09] MEDS ORDERED: PROMETHAZINE 25 MG/ML, 1ML IV PRN (09:00)
[2019-11-09] MEDS ORDERED: ONDANSETRON 2MG/ML, 2ML IV PRN (09:00)
[2019-11-09] MEDS ORDERED: OXYcodone 5 MG/5 ML ORAL.SOL UDC PO PRN (09:00)
[2019-11-09] MEDS ORDERED: FENTANYL PF 100 MCG/2ML IV PRN (09:00)
[2019-11-09] MEDS ORDERED: hydrALAzine 20 MG/ML, 1ML IV PRN (09:00)
[2019-11-09] MEDS ORDERED: MEPERIDINE/PF 25MG/ML,1ML IVPush PRN (09:00)
[2019-11-09] MEDS ORDERED: ACETAMINOPHEN 325 MG TABLET PO PRN (09:00)
[2019-11-09] MEDS ORDERED: HYDROmorphone 2 MG/ML, 1ML IVPush PRN (09:00)
[2019-11-09] MEDS ORDERED: EPHEDRINE 50 MG/ML, 1ML IVPush PRN (09:00)
[2019-11-09] MEDS ORDERED: LABETALOL 5MG/ML, 20ML IV PRN (09:00)
[2019-11-09] MEDS: MEROPENEM 1 GM in SODIUM CHLORIDE 0.9% 100 ML IV SCH ×2 (10:29→21:37)
[2019-11-09] MEDS: SENNA/DOCUSATE TABLET PO SCH (10:30)
[2019-11-09] MEDS: AMLODIPINE 5 MG TABLET PO SCH ×2 (10:30→20:59)
[2019-11-09] MEDS: LISINOPRIL 20 MG TABLET PO SCH ×2 (10:30→20:59)
[2019-11-09] MEDS: MAGNESIUM CHLORIDE 64 MG TABLET.DR PO SCH ×2 (10:30→20:59)
[2019-11-09] MEDS: GABAPENTIN 100 MG CAPSULE PO SCH ×2 (10:30→20:59)
[2019-11-09] MEDS: POLYETHYLENE GLYCOL 17 GM PACKET PO SCH (10:30)
[2019-11-09] MEDS: ACETAMINOPHEN 325 MG TABLET PO PRN ×2 (12:59→20:59)
[2019-11-09] MEDS: HYDROmorphone 2 MG/ML, 1ML IV PRN ×2 (12:59→20:59)
[2019-11-09 13:46] VITALS: BP 118/67
[2019-11-09 20:05] VITALS: BP 125/77
[2019-11-09] MEDS: ATORVASTATIN 80 MG TABLET PO SCH (20:59)
[2019-11-09] MEDS: MELATONIN 5 MG TABLET PO PRN (20:59)
[2019-11-10] MEDS: PANTOPRAZOLE 80 MG in SODIUM CHLORIDE 0.9% 100 ML IV SCH (01:30)
[2019-11-10 02:34] VITALS: BP 115/68
[2019-11-10] MEDS: INSULIN LISPRO 100 UNITS/ML, PEN SQ-INSULIN SCH ×4 (07:00→20:00)
[2019-11-10 07:22] LABS: ANION GAP 5 mmol/L (5-15); CALCIUM 7.9 mg/dL (8.5-10.1); CHLORIDE 105 mmol/L (98-107); CREATININE 0.49 mg/dL (0.55-1.02)
[2019-11-10] MEDS: MAGNESIUM CHLORIDE 64 MG TABLET.DR PO SCH ×2 (07:56→20:00)
[2019-11-10] MEDS: GABAPENTIN 100 MG CAPSULE PO SCH ×2 (07:56→20:01)
[2019-11-10] MEDS: POLYETHYLENE GLYCOL 17 GM PACKET PO SCH (07:56)
[2019-11-10] MEDS: AMLODIPINE 5 MG TABLET PO SCH ×2 (07:57→20:01)
[2019-11-10] MEDS: LISINOPRIL 20 MG TABLET PO SCH ×2 (07:57→20:01)
[2019-11-10] MEDS: SENNA/DOCUSATE TABLET PO SCH (07:57)
[2019-11-10 07:58] VITALS: BP 120/72
[2019-11-10] MEDS: HYDROmorphone 2 MG/ML, 1ML IV PRN ×4 (07:58→21:04)
[2019-11-10] MEDS: MEROPENEM 1 GM in SODIUM CHLORIDE 0.9% 100 ML IV SCH ×2 (09:40→20:02)
[2019-11-10] MEDS: OMEPRAZOLE 20 MG CAPSULE.DR PO SCH (12:14)
[2019-11-10 14:55] VITALS: BP 126/74
[2019-11-10 19:53] VITALS: BP 161/79
[2019-11-10] MEDS: ATORVASTATIN 80 MG TABLET PO SCH (20:01)
[2019-11-10] MEDS: MELATONIN 5 MG TABLET PO PRN (20:01)
[2019-11-10] MEDS: ACETAMINOPHEN 325 MG TABLET PO PRN (23:31)
[2019-11-11] MEDS: HYDROmorphone 2 MG/ML, 1ML IV PRN ×5 (00:15→18:37)
[2019-11-11 02:52] VITALS: BP 120/69
[2019-11-11] MEDS: OMEPRAZOLE 20 MG CAPSULE.DR PO SCH (06:09)
[2019-11-11] MEDS: GABAPENTIN 100 MG CAPSULE PO SCH ×2 (07:35→20:51)
[2019-11-11] MEDS: ACETAMINOPHEN 325 MG TABLET PO PRN ×4 (07:35→20:50)
[2019-11-11] MEDS: MAGNESIUM CHLORIDE 64 MG TABLET.DR PO SCH ×2 (07:35→20:50)
[2019-11-11] MEDS: AMLODIPINE 5 MG TABLET PO SCH ×2 (07:35→20:51)
[2019-11-11] MEDS: POLYETHYLENE GLYCOL 17 GM PACKET PO SCH (07:36)
[2019-11-11] MEDS: SENNA/DOCUSATE TABLET PO SCH (07:36)
[2019-11-11] MEDS: INSULIN LISPRO 100 UNITS/ML, PEN SQ-INSULIN SCH ×4 (07:44→21:19)
[2019-11-11 08:41] VITALS: BP 167/79
[2019-11-11] MEDS: LISINOPRIL 20 MG TABLET PO SCH ×2 (09:00→20:51)
[2019-11-11] MEDS: MEROPENEM 1 GM in SODIUM CHLORIDE 0.9% 100 ML IV SCH ×2 (09:06→20:52)
[2019-11-11 12:43] VITALS: BP 149/79
[2019-11-11] MEDS: APIXABAN 5 MG TABLET PO SCH (20:50)
[2019-11-11] MEDS: ATORVASTATIN 80 MG TABLET PO SCH (20:51)
[2019-11-11 20:58] VITALS: BP 163/78
[2019-11-12] MEDS: HYDROmorphone 2 MG/ML, 1ML IV PRN ×5 (01:10→22:52)
[2019-11-12 01:19] VITALS: BP 157/81
[2019-11-12] MEDS: ACETAMINOPHEN 325 MG TABLET PO PRN ×2 (05:37→20:39)
[2019-11-12] MEDS: OMEPRAZOLE 20 MG CAPSULE.DR PO SCH (05:37)
[2019-11-12 07:13] VITALS: BP 159/74
[2019-11-12] MEDS: AMLODIPINE 5 MG TABLET PO SCH ×2 (07:33→20:39)
[2019-11-12] MEDS: GABAPENTIN 100 MG CAPSULE PO SCH ×2 (07:33→20:39)
[2019-11-12] MEDS: MAGNESIUM CHLORIDE 64 MG TABLET.DR PO SCH ×2 (07:33→20:39)
[2019-11-12] MEDS: POLYETHYLENE GLYCOL 17 GM PACKET PO SCH (07:33)
[2019-11-12] MEDS: LISINOPRIL 20 MG TABLET PO SCH ×2 (07:33→20:39)
[2019-11-12] MEDS: APIXABAN 5 MG TABLET PO SCH ×2 (07:33→20:39)
[2019-11-12] MEDS: MEROPENEM 1 GM in SODIUM CHLORIDE 0.9% 100 ML IV SCH ×2 (07:34→20:39)
[2019-11-12] MEDS: SENNA/DOCUSATE TABLET PO SCH (07:34)
[2019-11-12] MEDS: INSULIN LISPRO 100 UNITS/ML, PEN SQ-INSULIN SCH ×4 (08:08→20:39)
[2019-11-12 12:23] VITALS: BP 152/71
[2019-11-12 19:03] VITALS: BP 156/77
[2019-11-12] MEDS: ATORVASTATIN 80 MG TABLET PO SCH (20:39)
[2019-11-12] MEDS: MELATONIN 5 MG TABLET PO PRN (23:55)
[2019-11-13] MEDS: ACETAMINOPHEN 325 MG TABLET PO PRN ×3 (01:49→16:58)
[2019-11-13 02:00] VITALS: BP 161/67
[2019-11-13] MEDS: HYDROmorphone 2 MG/ML, 1ML IV PRN ×2 (04:37→20:10)
[2019-11-13] MEDS: OMEPRAZOLE 20 MG CAPSULE.DR PO SCH (05:22)
[2019-11-13] MEDS: INSULIN LISPRO 100 UNITS/ML, PEN SQ-INSULIN SCH ×4 (07:00→22:08)
[2019-11-13] MEDS: POLYETHYLENE GLYCOL 17 GM PACKET PO SCH (07:31)
[2019-11-13] MEDS: LISINOPRIL 20 MG TABLET PO SCH ×2 (07:31→22:09)
[2019-11-13] MEDS: GABAPENTIN 100 MG CAPSULE PO SCH ×2 (07:31→22:08)
[2019-11-13] MEDS: AMLODIPINE 5 MG TABLET PO SCH ×2 (07:31→22:09)
[2019-11-13] MEDS: MAGNESIUM CHLORIDE 64 MG TABLET.DR PO SCH ×2 (07:31→22:09)
[2019-11-13] MEDS: SENNA/DOCUSATE TABLET PO SCH (07:31)
[2019-11-13] MEDS: APIXABAN 5 MG TABLET PO SCH ×2 (07:31→22:09)
[2019-11-13 07:34] VITALS: BP 139/70
[2019-11-13] MEDS: MEROPENEM 1 GM in SODIUM CHLORIDE 0.9% 100 ML IV SCH ×2 (07:59→22:05)
[2019-11-13] MEDS ORDERED: OXYcodone/APAP 5/325MG TABLET ONE (13:32)
[2019-11-13] MEDS ORDERED: OXYcodone IR 5MG TABLET ONE (13:40)
[2019-11-13 13:47] VITALS: BP 176/79
[2019-11-13] MEDS: OXYcodone 5 MG/5 ML ORAL.SOL UDC PO PRN ×2 (13:52→22:20)
[2019-11-13 20:07] VITALS: BP 153/72
[2019-11-13] MEDS: ATORVASTATIN 80 MG TABLET PO SCH (22:08)
[2019-11-13] MEDS: MELATONIN 5 MG TABLET PO PRN (23:45)
[2019-11-14 01:38] VITALS: BP 134/54
[2019-11-14] MEDS: HYDROmorphone 2 MG/ML, 1ML IV PRN ×3 (04:54→20:26)
[2019-11-14] MEDS: OMEPRAZOLE 20 MG CAPSULE.DR PO SCH ×2 (05:00→05:03)
[2019-11-14 05:35] LABS: CREATININE 0.46 mg/dL (0.55-1.02)
[2019-11-14] MEDS: INSULIN LISPRO 100 UNITS/ML, PEN SQ-INSULIN SCH ×4 (08:14→20:13)
[2019-11-14] MEDS: POLYETHYLENE GLYCOL 17 GM PACKET PO SCH (08:14)
[2019-11-14 08:20] VITALS: BP 180/74
[2019-11-14] MEDS: GABAPENTIN 100 MG CAPSULE PO SCH ×2 (08:23→20:11)
[2019-11-14] MEDS: LISINOPRIL 20 MG TABLET PO SCH ×2 (08:24→20:11)
[2019-11-14] MEDS: SENNA/DOCUSATE TABLET PO SCH (08:24)
[2019-11-14] MEDS: APIXABAN 5 MG TABLET PO SCH ×2 (08:24→20:11)
[2019-11-14] MEDS: MAGNESIUM CHLORIDE 64 MG TABLET.DR PO SCH ×2 (08:24→20:10)
[2019-11-14] MEDS: AMLODIPINE 5 MG TABLET PO SCH ×2 (08:24→20:11)
[2019-11-14] MEDS: MEROPENEM 1 GM in SODIUM CHLORIDE 0.9% 100 ML IV SCH (08:31)
[2019-11-14] MEDS: OXYcodone 5 MG/5 ML ORAL.SOL UDC PO PRN ×2 (08:44→18:29)
[2019-11-14 13:07] VITALS: BP 151/73
[2019-11-14] MEDS: METOPROLOL TARTRATE 25 MG TAB PO SCH (17:21)
[2019-11-14 20:10] VITALS: BP 148/72
[2019-11-14] MEDS: ATORVASTATIN 80 MG TABLET PO SCH (20:11)
[2019-11-14] MEDS: MELATONIN 5 MG TABLET PO PRN (21:52)
[2019-11-14] MEDS: ACETAMINOPHEN 325 MG TABLET PO PRN (21:52)
[2019-11-15 00:13] VITALS: BP 169/80
[2019-11-15] MEDS: OXYcodone 5 MG/5 ML ORAL.SOL UDC PO PRN ×3 (00:26→14:43)
[2019-11-15] MEDS: HYDROmorphone 2 MG/ML, 1ML IV PRN ×5 (02:12→21:28)
[2019-11-15] MEDS: ACETAMINOPHEN 325 MG TABLET PO PRN ×2 (04:11→10:54)
[2019-11-15 05:50] LABS: ANION GAP 6 mmol/L (5-15); BASOPHILS # (AUTO) 0.06 x10^3/uL (0-0.1); BASOPHILS % (AUTO) 1 % (0-1); CALCIUM 8.9 mg/dL (8.5-10.1); CHLORIDE 103 mmol/L (98-107); EOSINOPHILS # (AUTO) 0.51 x10^3/uL (0-0.4); EOSINOPHILS % (AUTO) 10 % (1-7); LYMPHOCYTES % (AUTO) 32 % (22-44); MD NO; MEAN CORPUSCULAR HEMOGLOBIN 30.9 pg (27.0-34.8); MEAN CORPUSCULAR HGB CONC 33.6 g/dL (32.4-35.8); MEAN CORPUSCULAR VOLUME 91.8 fL (80-100); MEAN PLATELET VOLUME 8.9 fL (7.4-10.4); MONOCYTES # (AUTO) 0.54 x10^3/uL (0.2-0.8); MONOCYTES % (AUTO) 10 % (2-9); NEUTROPHILS # (AUTO) 2.49 x10^3/uL (1.8-6.8); NEUTROPHILS % (AUTO) 47 % (42-75); PLATELET COUNT 294 x10^3/uL (130-400); RED BLOOD COUNT 3.33 x10^6/uL (3.82-5.3); RED CELL DISTRIBUTION WIDTH 15.7 % (9.6-15.2)
[2019-11-15 05:51] LABS: CREATININE 0.51 mg/dL (0.55-1.02)
[2019-11-15] MEDS: OMEPRAZOLE 20 MG CAPSULE.DR PO SCH (06:05)
[2019-11-15] MEDS: METOPROLOL TARTRATE 25 MG TAB PO SCH ×2 (06:07→17:14)
[2019-11-15] MEDS: INSULIN LISPRO 100 UNITS/ML, PEN SQ-INSULIN SCH ×4 (06:11→21:35)
[2019-11-15 06:57] VITALS: BP 164/76
[2019-11-15] MEDS: APIXABAN 5 MG TABLET PO SCH ×2 (08:37→21:23)
[2019-11-15] MEDS: SENNA/DOCUSATE TABLET PO SCH (08:37)
[2019-11-15] MEDS: MAGNESIUM CHLORIDE 64 MG TABLET.DR PO SCH ×2 (08:37→21:23)
[2019-11-15] MEDS: AMLODIPINE 5 MG TABLET PO SCH ×2 (08:37→21:38)
[2019-11-15] MEDS: LISINOPRIL 20 MG TABLET PO SCH ×2 (08:38→21:22)
[2019-11-15] MEDS: GABAPENTIN 100 MG CAPSULE PO SCH ×2 (08:38→21:23)
[2019-11-15] MEDS: POLYETHYLENE GLYCOL 17 GM PACKET PO SCH (08:38)
[2019-11-15 15:22] VITALS: BP 153/68
[2019-11-15 19:05] VITALS: BP 150/78
[2019-11-15] MEDS: ATORVASTATIN 80 MG TABLET PO SCH (21:23)
[2019-11-15] MEDS: MELATONIN 5 MG TABLET PO PRN (21:38)
[2019-11-16 00:25] VITALS: BP 160/70
[2019-11-16] MEDS: HYDROmorphone 2 MG/ML, 1ML IV PRN ×2 (03:07→08:13)
[2019-11-16 05:58] VITALS: BP 162/77
[2019-11-16] MEDS: OMEPRAZOLE 20 MG CAPSULE.DR PO SCH (06:01)
[2019-11-16] MEDS: METOPROLOL TARTRATE 25 MG TAB PO SCH (06:01)
[2019-11-16 06:52] LABS: BASOPHILS # (AUTO) 0.06 x10^3/uL (0-0.1); BASOPHILS % (AUTO) 1 % (0-1); EOSINOPHILS % (AUTO) 9 % (1-7); LYMPHOCYTES # (AUTO) 1.72 x10^3/uL (1-3.4); LYMPHOCYTES % (AUTO) 32 % (22-44); MD NO; MEAN CORPUSCULAR HEMOGLOBIN 31.1 pg (27.0-34.8); MEAN CORPUSCULAR HGB CONC 33.6 g/dL (32.4-35.8); MEAN CORPUSCULAR VOLUME 92.3 fL (80-100); MEAN PLATELET VOLUME 8.8 fL (7.4-10.4); MONOCYTES # (AUTO) 0.55 x10^3/uL (0.2-0.8); MONOCYTES % (AUTO) 10 % (2-9); NEUTROPHILS # (AUTO) 2.51 x10^3/uL (1.8-6.8); NEUTROPHILS % (AUTO) 47 % (42-75); PLATELET COUNT 302 x10^3/uL (130-400); RED CELL DISTRIBUTION WIDTH 15.9 % (9.6-15.2)
[2019-11-16] MEDS: INSULIN LISPRO 100 UNITS/ML, PEN SQ-INSULIN SCH ×2 (07:00→12:40)
[2019-11-16 07:04] LABS: ANION GAP 7 mmol/L (5-15); CHLORIDE 104 mmol/L (98-107)
[2019-11-16 07:06] LABS: CALCIUM 9.2 mg/dL (8.5-10.1); CREATININE 0.48 mg/dL (0.55-1.02)
[2019-11-16 07:21] VITALS: BP 151/70
[2019-11-16] MEDS: POLYETHYLENE GLYCOL 17 GM PACKET PO SCH (08:11)
[2019-11-16] MEDS: MAGNESIUM CHLORIDE 64 MG TABLET.DR PO SCH (08:12)
[2019-11-16] MEDS: SENNA/DOCUSATE TABLET PO SCH (08:12)
[2019-11-16] MEDS: APIXABAN 5 MG TABLET PO SCH (08:12)
[2019-11-16] MEDS: AMLODIPINE 5 MG TABLET PO SCH (08:13)
[2019-11-16] MEDS: GABAPENTIN 100 MG CAPSULE PO SCH (08:13)
[2019-11-16] MEDS: LISINOPRIL 20 MG TABLET PO SCH (08:13)
[2019-11-16] MEDS: OXYcodone 5 MG/5 ML ORAL.SOL UDC PO PRN (10:37)
[2019-11-16] MEDS ORDERED: LISI-170 PO (12:36)
[2019-11-16] MEDS ORDERED: METO25TA35 PO (12:36)
[2019-11-16] MEDS ORDERED: AMLO-150 PO (12:36)
[2019-11-16] MEDS ORDERED: OMEP-110 PO (12:36)
[2019-11-16] MEDS ORDERED: OXYcodone 5 MG/5 ML ORAL.SOL UDC PO PRN (13:30)
[2019-11-16 13:53] VITALS: BP 161/77
== END 2019-11-16 15:35 | disposition home health service (06) | DRG 177 ==
LOC: SUATTDRO 15:12 → ED 15:28 → EDIP 16:55 → 3N 17:51
PROVIDERS: ADMIT Hospitalist; ATTEND Hospitalist
PROC: 0T9B70Z Drainage of Bladder with Drainage Device, Via Natural or Artificial Opening (ICD-10-PCS; 2019-10-29)
PROC: 0W3P8ZZ Control Bleeding in Gastrointestinal Tract, Via Natural or Artificial Opening Endoscopic (ICD-10-PCS; principal; 2019-11-09 12:30)
PROC: 30233N1 Transfusion of Nonautologous Red Blood Cells into Peripheral Vein, Percutaneous Approach (ICD-10-PCS; 2019-11-16)
DX: J15.6 Pneumonia due to other Gram-negative bacteria (principal); K22.6 Gastro-esophageal laceration-hemorrhage syndrome; J96.01 Acute respiratory failure with hypoxia; N39.0 Urinary tract infection, site not specified; I82.593 Chronic embolism and thrombosis of other specified deep vein of lower extremity, bilateral; D62 Acute posthemorrhagic anemia; E87.1 Hypo-osmolality and hyponatremia; L89.619 Pressure ulcer of right heel, unspecified stage; M21.371 Foot drop, right foot; J15.9 Unspecified bacterial pneumonia; M21.372 Foot drop, left foot; E11.9 Type 2 diabetes mellitus without complications; E78.5 Hyperlipidemia, unspecified; G89.29 Other chronic pain; I11.0 Hypertensive heart disease with heart failure; J32.0 Chronic maxillary sinusitis; K29.80 Duodenitis without bleeding; K21.0 Gastro-esophageal reflux disease with esophagitis; K29.70 Gastritis, unspecified, without bleeding; K44.9 Diaphragmatic hernia without obstruction or gangrene; I50.9 Heart failure, unspecified; S81.812A Laceration without foreign body, left lower leg, initial encounter; W19.XXXA Unspecified fall, initial encounter; Y95 Nosocomial condition; Z51.5 Encounter for palliative care; Z79.01 Long term (current) use of anticoagulants; Z79.4 Long term (current) use of insulin; Z82.3 Family history of stroke; Y92.009 Unspecified place in unspecified non-institutional (private) residence as the place of occurrence of the external cause; Z86.73 Personal history of transient ischemic attack (TIA), and cerebral infarction without residual deficits
CPT/HCPCS: 36415; 70450; 71045; 74018; 80048; 80053; 81001; 82040; 82565; 82962; 83605; 83735; 83930; 83935; 84100; 84145; 85014; 85018; 85025; 86850; 86900; 86923; 87040; 87086; 93005; 99285; G0378; J1170; J1335; J2185; J2405; J2704; J3480; C9113; J0360; J1815; J3475; J7030; J7040; P9016

== ENCOUNTER 2020-12-03 14:37 | Emergency (ER) | payer MEDICARE ==
[~2020-12-03] VITALS: Ht 157.5 cm; Wt 69.0 kg
[~2020-12-03 14:37] MED LIST changes: +AMLO-150 PO; +AMLO-211 PO; -AMLO10TA8 PO; +LISI-170 PO; +LISI10TA19 PO; -LISI10TA2 PO; +MELA5CAP PO; +METO25TA35 PO; +NITR100C PO; +NITROFURANTOIN; +OMEP-110 PO; +ondansetron
--- NOTE | 2020-12-03 15:12 | NUR ---
PT BIB SPOUSE VIA POV. PER SPOUSE PT HAD FSBS 341 AT HOME AND HAS HAD N/V SINCE 0500. PT REPORTS 8/10 ABD PAIN SINCE MIDNIGHT. PT HAS PRIMARY CARE APPT AT 1700, BUT CAME TO ED INSTEAD. FSBS 291 IN TRIAGE. PER PT'S PT HAD COFFEE GROUND EMESIS THIS MORNING AND THROUGHOUT THE DAY, HAS VOMITTED 4X TODAY. PT RESTING IN [facility],MONITORING IN PLACE, NADN AT THIS TIME, WCTM.
[2020-12-03] MEDS ORDERED: ONDANSETRON 2MG/ML, 2ML ONE (16:12)
[2020-12-03] MEDS ORDERED: FAMOTIDINE 20 MG/2 ML ONE (16:13)
[2020-12-03 16:27] LABS: MEAN CORPUSCULAR HEMOGLOBIN 29.5 pg (27.0-34.8); MEAN CORPUSCULAR HGB CONC 33.2 g/dL (32.4-35.8); MEAN PLATELET VOLUME 8.6 fL (7.4-10.4); PLATELET COUNT 232 x10^3/uL (130-400)
[2020-12-03] MEDS ORDERED: FAMOTIDINE 20 MG/2 ML IVPush ONE (16:30)
[2020-12-03] MEDS ORDERED: SODIUM CHLORIDE 0.9% 1,000ML IVBOLUS ONE (16:30)
[2020-12-03] MEDS ORDERED: ONDANSETRON 2MG/ML, 2ML IVPush ONE (16:30)
[2020-12-03] MEDS ORDERED: SODIUM CHLORIDE FLUSH 10ML SYR IVF ONE (16:30)
[2020-12-03 16:38] LABS: ALANINE AMINOTRANSFERASE 17 U/L (12-78); ALBUMIN 3.5 g/dL (3.4-5.0); ANION GAP 10 mmol/L (5-15); CALCIUM 9.3 mg/dL (8.5-10.1); CHLORIDE 93 mmol/L (98-107); CREATININE 0.92 mg/dL (0.55-1.02)
[2020-12-03 16:40] LABS: ALKALINE PHOSPHATASE 83 U/L (45-117); BILIRUBIN,TOTAL 0.5 mg/dL (0.2-1.0)
[2020-12-03 17:00] LABS: MD YES
[2020-12-03 17:04] LABS: BANDS%(MANUAL) 3 % (0-7); LYMPH#(MANUAL) 1.61 x10^3/uL (1-3.4); LYMPHS% (MANUAL) 12 % (22-44); MONOS#(MANUAL) 0.54 x10^3/uL (0.3-2.7); MONOS% (MANUAL) 4 % (2-9); SEG#(MANUAL) 10.85 x10^3/uL (1.8-6.8); SEGS% (MANUAL) 81 % (42-75)
[2020-12-03 17:05] LABS: OVALOCYTES 1+
[2020-12-03 17:06] LABS: <PLATELET ESTIMATE> ADEQUATE; <PLT MORPHOLOGY> NORMAL PLT MORPH
[2020-12-03] MEDS ORDERED: OMNIPAQUE 350 MG/ML, 100ML BOTTLE ONE (17:17)
[2020-12-03 18:17] VITALS: BP 151/58
--- NOTE | 2020-12-03 18:53 | NUR ---
TASK RN: DC EDUCATION PROVIDED, PT/FAMILY DEMONSTRATE UNDERSTANDING. PT ASSISTED TO DRESS AND ASSIST X2 TO OWN WHEELCHAIR. WHEELED TO DC WITH RN AND FAMILY.
== END 2020-12-03 18:58 | disposition home or self-care (01) ==
LOC: ED 18:49
DX: R11.2 Nausea with vomiting, unspecified (principal); E86.0 Dehydration; R10.84 Generalized abdominal pain; K59.00 Constipation, unspecified; E11.65 Type 2 diabetes mellitus with hyperglycemia; E78.5 Hyperlipidemia, unspecified; Z86.73 Personal history of transient ischemic attack (TIA), and cerebral infarction without residual deficits
CPT/HCPCS: 36415; 74177; 80053; 82962; 83690; 85025; 96361; 96374; 96375; 99285; J2405; J7030; Q9967

== ENCOUNTER 2020-12-08 10:00 | Inpatient (IN) | payer MEDICARE ==
[~2020-12-08] VITALS: Ht 157.5 cm; Wt 67.1 kg
--- NOTE | 2020-12-08 10:17 | NUR ---
PT BIB EMS FOR ALTERED MENTAL STATUS AND WEAKNESS. PT BLOOD GLUCOSE 208 BY EMS. PER FAMILY PT HAS BEEN WEAKER, SLEEPING MORE, NOT ACTIVE. PT IS A&OX4, NEURO INTACT. FACIAL EXPRESSIONS SYMMETRICAL, NO FACIAL DROOP. HAND PEST CONTROL APPLICATOR EQUAL BILATERALLY. PT ON CARD MONITOR, EKG DONE. EMS IV 20 R AC.
[2020-12-08] MEDS ORDERED: SODIUM CHLORIDE 0.9% 1,000ML IVBOLUS ONE (10:30)
[2020-12-08] MEDS ORDERED: SODIUM CHLORIDE FLUSH 10ML SYR IVF ONE (10:30)
[2020-12-08] MEDS ORDERED: MORPHINE SULFATE 4 MG/ML, 1ML IVPush PRN (10:30)
--- NOTE | 2020-12-08 10:32 | NUR ---
PT TO CT.
--- NOTE | 2020-12-08 11:03 | NUR ---
LABS, UA, IVF COMPLETE. PT RESTING, VSS
--- NOTE | 2020-12-08 11:16 | NUR ---
XR AT BEDSIDE.
[2020-12-08 11:18] LABS: BASOPHILS % (AUTO) 0 % (0-1); EOSINOPHILS % (AUTO) 0 % (1-7); LYMPHOCYTES % (AUTO) 5 % (22-44); MEAN CORPUSCULAR HEMOGLOBIN 29.1 pg (27.0-34.8); MEAN CORPUSCULAR HGB CONC 32.9 g/dL (32.4-35.8); MEAN PLATELET VOLUME 8.6 fL (7.4-10.4); MONOCYTES % (AUTO) 3 % (2-9); NEUTROPHILS % (AUTO) 93 % (42-75); PLATELET COUNT 225 x10^3/uL (130-400); RED BLOOD COUNT 3.71 x10^6/uL (3.82-5.3); RED CELL DISTRIBUTION WIDTH 13.9 % (9.6-15.2)
[2020-12-08 11:21] LABS: MICROSCOPIC INDICATED
[2020-12-08 11:30] LABS: ALBUMIN 3.1 g/dL (3.4-5.0); CHLORIDE 85 mmol/L (98-107)
[2020-12-08 11:34] LABS: ALANINE AMINOTRANSFERASE 16 U/L (12-78); ALKALINE PHOSPHATASE 79 U/L (45-117); ANION GAP 22 mmol/L (5-15); BILIRUBIN,TOTAL 0.4 mg/dL (0.2-1.0); CALCIUM 8.5 mg/dL (8.5-10.1); CREATININE 6.24 mg/dL (0.55-1.02); SALICYLATE LEVEL 2.5 mg/dL (2.8-20.0); TOTAL PROTEIN 6.4 g/dL (6.4-8.2)
[2020-12-08 11:43] LABS: MD SCAN
[2020-12-08 11:47] LABS: TROPONIN I 0.293 ng/mL (0.000-0.045)
[2020-12-08] MEDS ORDERED: CEFTRIAXONE PMX 1GM/50ML 50 ML IVPB ONE (12:00)
[2020-12-08] MEDS ORDERED: LACTATED RINGERS 1,000 ML IVBOLUS ONE (12:00)
[2020-12-08] MEDS ORDERED: INSULIN REGULAR 100 UNITS/ML, 3ML VIAL IVPush ONE (12:00)
[2020-12-08] MEDS ORDERED: DEXTROSE 50%, 50ML SYRINGE IVPush ONE (12:00)
[2020-12-08] MEDS ORDERED: CALCIUM CHLORIDE 10%, 10ML SYR IVPush ONE (12:00)
[2020-12-08] MEDS ORDERED: CALCIUM CHLORIDE 10%, 10ML SYR ONE (12:08)
[2020-12-08] MEDS ORDERED: CEFTRIAXONE PMX 1GM/50ML 50 ML ONE (12:08)
[2020-12-08] MEDS ORDERED: INSULIN SINGLE DOSE, ER ONE (12:09)
[2020-12-08] MEDS ORDERED: DEXTROSE 50%, 50ML SYRINGE ONE (12:09)
[2020-12-08] MEDS ORDERED: GADOTERATE 7.5 MMOL/15ML SYR ONE (12:20)
--- NOTE | 2020-12-08 12:23 | NUR ---
PT IN MRI
[2020-12-08] MEDS ORDERED: ONDANSETRON 2MG/ML, 2ML IVPush PRN (13:00)
[2020-12-08] MEDS ORDERED: LABETALOL 5MG/ML, 20ML IVPush PRN (13:00)
[2020-12-08] MEDS ORDERED: BUTALB/APAP/CAFFEINE 50MG/325MG/40MG PO PRN (13:00)
[2020-12-08] MEDS ORDERED: ENALAPRILAT 1.25 MG/ML, 2ML IVPush PRN (13:00)
[2020-12-08] MEDS ORDERED: BACLOFEN 10 MG TABLET PO PRN (13:00)
[2020-12-08] MEDS ORDERED: POTASSIUM CHLORIDE 20 MEQ in LACTATED RINGERS 1,000 ML IV SCH (13:00)
[2020-12-08] MEDS ORDERED: ONDANSETRON ODT 4 MG PO PRN (13:00)
[2020-12-08] MEDS ORDERED: GUAIFENESIN/DM 200-20MG, 10ML UDC PO PRN (13:00)
[2020-12-08] MEDS ORDERED: ACETAMINOPHEN 325 MG TABLET PO PRN (13:00)
--- NOTE | 2020-12-08 13:00 | NUR ---
PT BACK FROM MRI. MEDICATED PER ORDERS. AT BEDSIDE. AWARE OF POC
--- NOTE | 2020-12-08 13:10 | NUR ---
REPORT TO MIRTA
--- NOTE | 2020-12-08 13:15 | NUR ---
ABX INFUSING AFTER BLOOD CULTURES X2
--- NOTE | 2020-12-08 13:17 | NUR ---
TOTAL OF 600 NS FROM NS BOLUS IN ER
[2020-12-08 13:51] VITALS: BP 164/53
[2020-12-08 14:09] VITALS: BP 143/68
[2020-12-08] MEDS: HEPARIN 5,000 UNITS/ML, 1ML SQ SCH ×2 (14:40→22:00)
[2020-12-08] MEDS ORDERED: SODIUM CHLORIDE 0.9% 1,000ML IV ONE (16:30)
[2020-12-08 17:00] LABS: CHLORIDE,URINE RANDOM 53 mmol/L; POTASSIUM,URINE RANDOM 23 mmol/L; SODIUM,URINE RANDOM 44 mmol/L
[2020-12-08 17:26] VITALS: BP 165/77
[2020-12-08] MEDS: LACTULOSE 20 GM/30 ML UDC PO SCH ×2 (17:33→21:00)
[2020-12-08 18:30] VITALS: BP 158/72
[2020-12-08] MEDS ORDERED: PANTOPRAZOLE 80 MG in SODIUM CHLORIDE 0.9% 50 ML IV ONE (18:30)
[2020-12-08] MEDS ORDERED: NALD0.2T3 PO (18:39)
[2020-12-08] MEDS ORDERED: CEFTRIAXONE PMX 1GM/50ML 50 ML IV SCH (19:00)
[2020-12-08] MEDS: PANTOPRAZOLE 80 MG in SODIUM CHLORIDE 0.9% 100 ML IV SCH (19:46)
[2020-12-08] MEDS ORDERED: MELATONIN 5 MG TABLET PO SCH (21:00)
[2020-12-08] MEDS: LIDODERM 5% PATCH TD SCH (22:26)
[2020-12-08] MEDS ORDERED: ACETAMINOPHEN 650 MG SUPP PR PRN (22:30)
[2020-12-09 02:00] VITALS: BP 150/67
[2020-12-09] MEDS: HEPARIN 5,000 UNITS/ML, 1ML SQ SCH (04:24)
[2020-12-09 05:19] LABS: BASOPHILS % (AUTO) 1 % (0-1); EOSINOPHILS % (AUTO) 0 % (1-7); LYMPHOCYTES % (AUTO) 4 % (22-44); MEAN CORPUSCULAR HEMOGLOBIN 30.2 pg (27.0-34.8); MEAN CORPUSCULAR HGB CONC 32.6 g/dL (32.4-35.8); MONOCYTES % (AUTO) 1 % (2-9); NEUTROPHILS % (AUTO) 95 % (42-75); PLATELET COUNT 202 x10^3/uL (130-400); RED BLOOD COUNT 2.43 x10^6/uL (3.82-5.3); RED CELL DISTRIBUTION WIDTH 14.7 % (9.6-15.2)
[2020-12-09 05:22] LABS: MD SCAN
[2020-12-09 05:29] LABS: ANION GAP 25 mmol/L (5-15); CALCIUM 8.1 mg/dL (8.5-10.1); CHLORIDE 90 mmol/L (98-107); CREATININE 5.65 mg/dL (0.55-1.02)
[2020-12-09] MEDS ORDERED: DEXTROSE 50%, 50ML SYRINGE IVPush ONE (06:00)
[2020-12-09] MEDS ORDERED: SODIUM BICARB 8.4%, 50ML SYRINGE IVPush ONE (06:00)
[2020-12-09] MEDS ORDERED: INSULIN REGULAR 100 UNITS/ML, 3ML VIAL IVPush ONE (06:00)
[2020-12-09] MEDS ORDERED: CALCIUM CHLORIDE 10%, 10ML SYR IVPush ONE (06:00)
[2020-12-09] MEDS ORDERED: DEXTROSE 50%, 50ML SYRINGE ONE (06:01)
[2020-12-09] MEDS ORDERED: SODIUM BICARB 8.4%, 50ML SYRINGE ONE (06:01)
[2020-12-09] MEDS ORDERED: MAGNESIUM SULFATE PMX 2GM/50ML 50 ML IV ONE (06:30)
[2020-12-09 06:59] LABS: INTERNATIONAL NORMALIZED RATIO 1.16 (0.93-1.1); PROTHROMBIN TIME 12.4 Seconds (9.6-11.5)
[2020-12-09] MEDS: SODIUM CHLORIDE FLUSH 10ML SYR IVF SCH ×2 (07:00→23:38)
[2020-12-09] MEDS ORDERED: NOREPINEPHRINE 8 MG in SODIUM CHLORIDE 0.9% 242 ML IV PRN (07:00)
[2020-12-09] MEDS: PANTOPRAZOLE 80 MG in SODIUM CHLORIDE 0.9% 100 ML IV SCH ×2 (07:13→15:29)
[2020-12-09] MEDS ORDERED: DEXTROSE 50%, 50ML SYRINGE IVPush PRN (07:30)
[2020-12-09] MEDS ORDERED: PHARMACY MAY ADJ FOR RENAL FX MC PRN (07:30)
[2020-12-09] MEDS ORDERED: GLUCAGON 1 MG IM PRN (07:30)
[2020-12-09] MEDS ORDERED: DEXTROSE 4 GM TAB.CHEW PO PRN (07:30)
[2020-12-09 07:40] LABS: ALANINE AMINOTRANSFERASE 11 U/L (12-78); ALBUMIN 2.1 g/dL (3.4-5.0); ANION GAP 27 mmol/L (5-15); CALCIUM 8.2 mg/dL (8.5-10.1); CHLORIDE 91 mmol/L (98-107); CREATININE 5.67 mg/dL (0.55-1.02)
[2020-12-09 07:45] LABS: ALKALINE PHOSPHATASE 48 U/L (45-117); BILIRUBIN,TOTAL 0.3 mg/dL (0.2-1.0); TOTAL PROTEIN 4.4 g/dL (6.4-8.2); TROPONIN I 0.519 ng/mL (0.000-0.045)
[2020-12-09] MEDS: MEROPENEM 1 GM in SODIUM CHLORIDE 0.9% 100 ML IV SCH (07:51)
[2020-12-09 07:58] LABS: BILIRUBIN, DIRECT < 0.1 mg/dL (0.1-0.2); BILIRUBIN,INDIRECT 0.2 mg/dL (0.0-2.0)
[2020-12-09] MEDS: LACTULOSE 20 GM/30 ML UDC PO SCH (09:00)
[2020-12-09] MEDS ORDERED: SENNA/DOCUSATE TABLET PO SCH (09:00)
[2020-12-09] MEDS: INSULIN LISPRO 100 UNITS/ML, PEN SQ-INSULIN SCH ×3 (13:02→20:47)
[2020-12-09 15:25] VITALS: BP 110/64
[2020-12-09] MEDS: SODIUM BICARBONATE 8.4% 150 MEQ in DEXTROSE 5% 1,000 ML IV SCH (15:29)
[2020-12-09] MEDS: HYDROmorphone 2 MG/ML, 1ML IVPush PRN ×3 (15:41→23:36)
[2020-12-09] MEDS ORDERED: LORazepam 2 MG/ML, 1ML IVPush PRN (16:30)
[2020-12-09 19:05] VITALS: BP 111/75
[2020-12-09] MEDS: LIDODERM 5% PATCH TD SCH (22:36)
[2020-12-10] MEDS: PANTOPRAZOLE 80 MG in SODIUM CHLORIDE 0.9% 100 ML IV SCH (02:20)
[2020-12-10] MEDS: SODIUM BICARBONATE 8.4% 150 MEQ in DEXTROSE 5% 1,000 ML IV SCH (06:12)
[2020-12-10 07:07] VITALS: BP 111/64
[2020-12-10] MEDS: INSULIN LISPRO 100 UNITS/ML, PEN SQ-INSULIN SCH (07:55)
[2020-12-10] MEDS: MEROPENEM 1 GM in SODIUM CHLORIDE 0.9% 100 ML IV SCH (07:59)
[2020-12-10] MEDS: SODIUM CHLORIDE FLUSH 10ML SYR IVF SCH (09:00)
== END 2020-12-10 10:09 | disposition hospice, home (50) | DRG 871 ==
LOC: ED 10:21 → EDIP 11:55 → 4WST 13:37 → CCU 12-09 06:26 → 4NW 12-09 13:13
PROVIDERS: ADMIT Internal Medicine; ATTEND Internal Medicine
PROC: 0T9B70Z Drainage of Bladder with Drainage Device, Via Natural or Artificial Opening (ICD-10-PCS; principal; 2020-12-08)
DX: A41.9 Sepsis, unspecified organism (principal); R65.21 Severe sepsis with septic shock; I63.81 Other cerebral infarction due to occlusion or stenosis of small artery; N17.0 Acute kidney failure with tubular necrosis; G93.41 Metabolic encephalopathy; J15.9 Unspecified bacterial pneumonia; I21.A1 Myocardial infarction type 2; I13.0 Hypertensive heart and chronic kidney disease with heart failure and stage 1 through stage 4 chronic kidney disease, or unspecified chronic kidney disease; I50.32 Chronic diastolic (congestive) heart failure; E72.20 Disorder of urea cycle metabolism, unspecified; E44.1 Mild protein-calorie malnutrition; E87.1 Hypo-osmolality and hyponatremia; E87.2 Acidosis; N30.00 Acute cystitis without hematuria; D62 Acute posthemorrhagic anemia; Z51.5 Encounter for palliative care; Z66 Do not resuscitate; B96.20 Unspecified Escherichia coli [E. coli] as the cause of diseases classified elsewhere; D53.9 Nutritional anemia, unspecified; E11.22 Type 2 diabetes mellitus with diabetic chronic kidney disease; E11.65 Type 2 diabetes mellitus with hyperglycemia; E78.5 Hyperlipidemia, unspecified; E87.5 Hyperkalemia; N18.9 Chronic kidney disease, unspecified; R62.7 Adult failure to thrive; Z79.4 Long term (current) use of insulin; Z82.3 Family history of stroke; Z86.73 Personal history of transient ischemic attack (TIA), and cerebral infarction without residual deficits; Z88.0 Allergy status to penicillin; Z91.15 Patient's noncompliance with renal dialysis; Z74.01 Bed confinement status; Z68.27 Body mass index [BMI] 27.0-27.9, adult
CPT/HCPCS: 36415; 36600; 70450; 70553; 71045; 80048; 80053; 80076; 80299; 80329; 81001; 82140; 82436; 82533; 82803; 82962; 83605; 83735; 83935; 84132; 84133; 84300; 84443; 84484; 85014; 85018; 85025; 85610; 85730; 86850; 86900; 86923; 87040; 87077; 87081; 87086; 87186; 93005; 93306; 96374; 96375; G0378; J0696; J1170; J1644; J1815; J2185; J2405; J3480; J7070; A9575; C9113; G0480; J3475; J7030; J7120